=== PATIENT | female | born 1945 | race Caucasian/White ===

== ENCOUNTER 2017-06-28 08:24 | Emergency (ER) | payer MEDICARE, MEDICAID, SELFPAY ==
[2017-06-20 11:14] VITALS: BMI 23.3
[2017-06-28] VITALS (7 sets, daily range): BP systolic 77–107; BP diastolic 40–84; PULSE 81–88; RESP 15–26; TEMP 36.7–36.9; O2SAT 97–100; BMI 23.8
--- NOTE | 2017-06-28 08:33 | ED.RN ---
BRUISING MARKED WITH SKIN PEN
--- NOTE | 2017-06-28 08:33 | ED.RN ---
SITE FIRM AND WARM CLOSEST TO THE RIGHT GROIN AROUND ATTENDS
--- NOTE | 2017-06-28 08:39 | ED.RN ---
PULSES MARKED SKIN MARKER
--- NOTE | 2017-06-28 08:50 | ED.RN ---
PT BP DROPPING. SAND BAG PLACED ON RIGHT GROIN
--- NOTE | 2017-06-28 08:51 | ED.VISSUMM ---
- ER Visit Summary Date of Service: 06/28/17 Chief Complaint: Right groin pain History of Present Illness: The patient is a 72 F presenting for evaluation secondary to right groin pain. Patient had a cardiac catheterization performed on 1113. Patient was doing well post procedure. Patient was sitting at the breakfast table this morning and felt a sudden severe pop in her right groin where she had her catheterization and started to develop swelling and pain. Patient states that she now is feeling somewhat lightheaded. Paramedics noted that the patient was hypotensive and the patient was brought immediately to the emergency department. Patient is on Plavix but no other blood thinners at this time. Physical Examination: Vital signs notable for hypotension. Well-nourished female no acute distress. Moist mucous membranes. Heart regular rate and rhythm. Lungs clear. Abdomen soft nontender. Lower extremity exam shows a significant amount of ecchymosis of the left thigh extending down below the knee. There is some swelling noted up in the groin at the patient's access site. Compartments still remain soft however. Patient does have +1 bilateral DP and PT pulses that are both palpable and dopplerable. Test Results: Tests are pending Emergency Department Course and Treatment: Patient presented secondary to pain and swelling and a likely femoral artery hemorrhage in her right thigh. She was hypotensive. She was typed and crossmatched for 2 units. She was given IV saline hydration. Immediately upon arrival I did contact Dr. John, as he is call center professional today and he performs vascular procedures, who recommended the patient be transferred to a higher level of care. Given how critical the patient is at this moment, I feel that she needs immediate vascular surgery evaluation and intervention. I discussed this with Darin meade, the patient will be transferred emergently for vascular surgery consultation. Patient's continued to be hypotensive and was ordered trauma blood in the emergency department. Sandbag was placed on the patient's right groin. I did consider the possibility of air transport in this patient, but I believe that she actually will receive quicker transport by ground as there was a ground unit close to the hospital. I informed the paramedics to perform manual pressure over the area with the patient was in transit Disposition: Emergent transfer Impression: 1. Right femoral artery hemorrhage 2. Hypotension Critical care time 35 minutes This note was generated with [employer] dictation software. It may contain incorrect words, spelling, and punctuation that were not noted in review of the chart prior to signing ED Disposition - Plan for ED Patient: Disposition: [facility] Chief Complaint: Hypotension Referrals: Care Physician,No Primary [Primary Care Provider] -
--- NOTE | 2017-06-28 08:52 | ED.RN ---
2ND LITER NS STARTED
[2017-06-28 08:53] LABS: Absolute Lymphocyte Count 1.87 X10^3/ul (0.83-4.51); Absolute Neutrophil Count 8.5 X10^3/uL (2.0-7.7); Basophil# 0.06 X10^3/uL; Basophil% 0.5 % (0-1); Eosinophil# 0.21 X10^3/uL; Eosinophils% 1.7 % (0-5); Hematocrit 27.7 % (37-47); Hemoglobin 8.8 g/dl (12.0-15.0); Lymphocyte # 1.87 X10^3/ul (4.0); Lymphocyte % 15.6 % (19-41); Mean Corp Hgb Conc 31.8 g/gl (32-36); Mean Corpuscular Hgb 30.9 pg (27.0-32.0); Mean Corpuscular Volume 97.2 fL (81-99); Mean Platelet Vol. 8.5 fl (6.2-12.0); Monocyte# 1.22 X10^3/uL; Monocyte% 10.1 % (0-10); Neutrophil # 8.49 X10^3/uL (2.7-7.7); Neutrophil % 70.7 % (47-70); POSITIVE COUNT NO; POSITIVE DIFFERENTIAL NO; POSITIVE MORPHOLOGY NO; Platelet Count 320 K/mm3 (150-450); RBC Distribution Width SD 58.4 fl (35.1-43.9); Red Blood Count 2.85 M/mm3 (4.2-5.4)
[2017-06-28 08:54] LABS: International Normalized Ratio 1.1; Prothrombin Time (Protime)PT. 13.3 SECONDS (11.7-14.9)
--- NOTE | 2017-06-28 08:54 | ED.DCSUM_ITS ---
- ER Visit Summary Date of Service: 06/28/17 Chief Complaint: Right groin pain History of Present Illness: The patient is a 72 F presenting for evaluation secondary to right groin pain. Patient had a cardiac catheterization performed on 1113. Patient was doing well post procedure. Patient was sitting at the breakfast table this morning and felt a sudden severe pop in her right groin where she had her catheterization and started to develop swelling and pain. Patient states that she now is feeling somewhat lightheaded. Paramedics noted that the patient was hypotensive and the patient was brought immediately to the emergency department. Patient is on Plavix but no other blood thinners at this time. Physical Examination: Vital signs notable for hypotension. Well-nourished female no acute distress. Moist mucous membranes. Heart regular rate and rhythm. Lungs clear. Abdomen soft nontender. Lower extremity exam shows a significant amount of ecchymosis of the left thigh extending down below the knee. There is some swelling noted up in the groin at the patient's access site. Compartments still remain soft however. Patient does have +1 bilateral DP and PT pulses that are both palpable and dopplerable. Test Results: Tests are pending Emergency Department Course and Treatment: Patient presented secondary to pain and swelling and a likely femoral artery hemorrhage in her right thigh. She was hypotensive. She was typed and crossmatched for 2 units. She was given IV saline hydration. Immediately upon arrival I did contact Dr. John, as he is construction project assistant today and he performs vascular procedures, who recommended the patient be transferred to a higher level of care. Given how critical the patient is at this moment, I feel that she needs immediate vascular surgery evaluation and intervention. I discussed this with Darin meade, the patient will be transferred emergently for vascular surgery consultation. Patient's continued to be hypotensive and was ordered trauma blood in the emergency department. Sandbag was placed on the patient's right groin. I did consider the possibility of air transport in this patient, but I believe that she actually will receive quicker transport by ground as there was a ground unit close to the hospital. I informed the paramedics to perform manual pressure over the area with the patient was in transit Disposition: Emergent transfer Impression: 1. Right femoral artery hemorrhage 2. Hypotension Critical care time 35 minutes This note was generated with [employer] dictation software. It may contain incorrect words, spelling, and punctuation that were not noted in review of the chart prior to signing ED Disposition - Plan for ED Patient: Disposition: [facility] Chief Complaint: Hypotension Referrals: Care Physician,No Primary [Primary Care Provider] -
--- NOTE | 2017-06-28 08:54 | ED.RN ---
PLACED ON O2 VIA NC
[2017-06-28 08:55] LABS: Partial Thromboplast Time 29.9 Seconds (24.1-36.2)
[2017-06-28] MEDS: 0.9% Normal Saline 1,000 ML IV.SOLN. 2000 ML IV (08:55)
[2017-06-28 08:58] LABS: Anion Gap 11 (5-15); BUN 14 mg/dL (7-18); BUN/Creat Ratio 20.7 RATIO (10-20); Calcium,Total 7.8 mg/dL (8.5-10.1); Chloride 106 mmol/L (98-107); Creatinine, Serum 0.68 mg/dL (0.55-1.02); EST Glomerular Filtration Rate 91 mL/min (>60); Est Glom Filt Rate - Afr Amer 111 mL/min (>60); Glucose 154 mg/dL (70-110); Potassium 3.8 mmol/L (3.5-5.1); Sodium Level 140 mmol/L (136-145)
--- NOTE | 2017-06-28 09:14 | ED.RN ---
BEDSIDE REPORT GIVEN TO EMS [facility]W FROM [facility]
--- NOTE | 2017-06-28 09:40 | ED.RN ---
blood and iv fluids continued during transport
== END 2017-06-28 09:15 | disposition short-term general hospital (02) ==
PROVIDERS: Emergency Provider Emergency Medicine
DX: R58 Hemorrhage, not elsewhere classified (principal); I95.9 Hypotension, unspecified; I25.10 Atherosclerotic heart disease of native coronary artery without angina pectoris; E11.9 Type 2 diabetes mellitus without complications; I10 Essential (primary) hypertension; R10.31 Right lower quadrant pain; Z79.82 Long term (current) use of aspirin; Z79.84 Long term (current) use of oral hypoglycemic drugs; Z79.02 Long term (current) use of antithrombotics/antiplatelets; Z79.52 Long term (current) use of systemic steroids; Z79.899 Other long term (current) drug therapy
CPT/HCPCS: 36415; 36430; 80048; 85025; 85610; 85730; 86644; 86850; 86900; 86920; 86922; 99285; J7030; P9016

== ENCOUNTER → 2017-10-05 16:50 | Outpatient (CLI) | payer MEDICARE, SELFPAY ==
[2017-06-20 11:14] VITALS: BMI 23.3
[2017-10-05 18:49] LABS: HIV - WCH Non-Reactive (Nonreactive)
[2017-10-07 13:14] LABS: HEPATITIS B SURFACE AG Negative (Negative); Hep B Surface Antibodies Non Reactive (.); Hep C Antibodies <0.1 s/co ratio (0.0-0.9)
== END ==
PROVIDERS: Family Provider Family Medicine; PCP Family Medicine; Visit Provider Family Medicine
DX: Z77.21 Contact with and (suspected) exposure to potentially hazardous body fluids (principal)
CPT/HCPCS: 86703; 86706; 86803; 87340

== ENCOUNTER 2017-10-13 06:57 | Emergency (ER) | payer MEDICARE, SELFPAY ==
[2017-06-20 11:14] VITALS: BMI 23.3
[2017-10-13 06:58] VITALS: BP 112/55; PULSE 103; RESP 18; TEMP 36.7; O2SAT 99; BMI 23.5
--- NOTE | 2017-10-13 07:11 | CT_ITS ---
STUDY: CT ABDOMEN AND PELVIS WITH CONTRAST REASON FOR EXAM: Female, 72 years old. 3 day history of abdominal pain with nausea. Elevated white cell count and decreased hemoglobin. RADIATION DOSAGE (If Supplied By Facility): CTDIvol = ( 14.31 ) mGy, DLP = ( 688.26 ) mGycm TECHNIQUE: Transaxial images were obtained from the dome of the diaphragm to the symphysis pubis with oral contrast. 100 ml of Isovue 300 contrast was administered. Sagittal and coronal images were reconstructed. Individualized dose optimization techniques were used for this CT. COMPARISON: None. FINDINGS: Increased linear markings at the lung bases with subpleural blebs at the right lung base suggestive of interstitial scarring. Coronary artery calcification. Normal liver. There is evidence of colonic interposition between the liver and the right hemidiaphragm. Normal gallbladder and extrahepatic biliary system. Normal spleen. Normal pancreas. Normal bilateral adrenal glands. There is a 2 cm cyst in the upper lateral portion of the right kidney. A 1.3 cm cyst is seen adjacent to this cyst posteriorly. A 1.5 cm cyst is also seen in the lower midportion of the right kidney. Several cysts are seen in the left kidney. The largest measures 4.4 cm x 4.5 cm. This is in the anterior superior midportion of the left kidney. Normal visualized stomach. Normal small intestine. Normal colon. The patient is status post appendectomy. There is diffuse atherosclerotic calcification of the abdominal aorta and its major visceral branches, without a demonstrated aneurysm. Normal inferior vena cava. Normal retroperitoneum. Normal urinary bladder. Calcified fibroid uterus. I suspect endometrial thickening. Follicles are seen in the left ovary. Correlation with a pelvic ultrasound is recommended. Normal abdominal wall. There is complete collapse of the L1 vertebrae. Loss of height of the T11 vertebrae as well as superior endplate of the L3 vertebrae. Disc space narrowing at the L5-S1 level. CT/Abdomen/Pelvis WITH Contrast IMPRESSION: Bilateral renal cysts. This is more prominent on the left side. Fibroid uterus with endometrial thickening. Follicles are seen in the left ovary. Correlation with pelvic ultrasound is recommended. Collapse of the L1 vertebrae. Electronically Signed: Jose Morrison MD at 9:17 EST Tel [phone], Service support ,
[2017-10-13] MEDS: 0.9% Normal Saline 1,000 ML 125 ML IV (07:14)
[2017-10-13] MEDS: Ondansetron 4 MG/2 ML Vial IV (07:17)
[2017-10-13 07:59] LABS: Mucous, Urine 0 SEEN /hpf (<or=2+); Squamous Epithelial Cells - UA 0 SEEN /hpf (5-10)
--- NOTE | 2017-10-13 07:59 | ED.VISSUMM ---
- ER Visit Summary Date of Service: 10/13/17 Chief Complaint: Abdominal pain History of Present Illness: The patient is a 72 F who notes 3 days of vague centralized abdominal pain. She notes associated nausea. Yesterday the patient was able to go out and he at [facility]. She has had no vomiting or diarrhea. No fevers. She notes generalized fatigue. She states her mouth feels very dry. She has a history of UTI and sepsis. She denies any urinary symptoms. no Rashes. Patient has a known right upper lobe mass that she has not had biopsied due to her choice. In June 2017 she was admitted to the ICU with septic shock secondary to enterococcus cystitis. She had an STEMI and received drug-eluting stents to the left circumflex and RCA. Physical Examination: Afebrile slightly tachycardic at 103. Heart rate on examination is 94 Gen: Well-nourished well-developed Head: Normocephalic atraumatic Eyes: Perrl EOMI ENT: TMs clear no rhinorrhea moist mucous membranes Neck: Supple no lymphadenopathy no JVD nontender CVS: Regular rate rhythm no murmurs normal S1-S2 Respiratory: No distress clear to auscultation bilaterally chest nontender Abdomen: Soft obese and mildly tender without guarding or rebound nondistended normal bowel sounds no masses Back: Nontender Extremity: Nontender no edema Skin: Normal color no rash Neuro: alert orientated ?3 CN II-XII intact normal strength sensation reflexes gait cerebellar Psych: Normal affect normal mood Test Results: White count 13.5. Hemoglobin is 8.8. Glucose 159. Liver enzymes normal. Lactic acid elevated at 3.9. Urinalysis showed 3+ bacteria 0-5 whites 0-5 reds positive nitrate positive leukocyte esterase. EKG sinus at a rate of 99. Chest x-ray shows the right upper lobe mass. CT abdomen pelvis showed no acute findings. Emergency Department Course and Treatment: Blood and urine cultures were obtained. Patient received IV fluids. She also received a dose of Zofran and Zosyn. Patient meets inpatient criteria for severe sepsis secondary to UTI. However the patient states that she does not want to stay in the hospital. She states that she does not like staying inpatient. She understands that she has a high risk of and if she does not will most likely return much worse than she is now. Patient appears to have the capacity to make this decision although I feel strongly it is a poor 1. I will place her on amoxicillin per her prior urine culture. Impression: 1. UTI. 2. Severe sepsis 3. Left AMA This note was generated with [employer] dictation software. It may contain incorrect words, spelling, and punctuation that were not noted in review of the chart prior to signing ED Disposition - Plan for ED Patient: Disposition: Home or Assisted Living Chief Complaint: Abd Pain Instructions: Sepsis Prescriptions: Ondansetron [Zofran Odt] 4 mg PO Q8H PRN PRN #10 tab PRN Reason: Nausea Amoxicillin 500 mg PO TID #30 tab Referrals: Julius Capone [Primary Care Provider] - As soon as possible Additional Instructions: You may return at any time for repeat examination
[2017-10-13 08:00] LABS: Color, Urine Yellow (Yellow); Glucose, Dipstick Normal (Normal); Ketone-Dipstick Negative (Negative); Leukocyte Esterase-Dipstick 25 /ul (Negative); Nitrite-Dipstick Positive (Negative); Occult Blood-Urine 25 /ul (Negative); Protein-Dipstick 100 mg/dl (Negative); Specific Gravity, Urine 1.015 (1.002-1.030); Urine Bilirubin Dipstick Negative (Negative); Urine Clarity Cloudy (Clear); Urine Urobilinogen Normal (Normal)
[2017-10-13 08:10] LABS: Absolute Neutrophil Count 11.3 X10^3/uL (2.0-7.7); Basophil# 0.03 X10^3/uL; Basophil% 0.2 % (0-1); Eosinophil# 0.18 X10^3/uL; Eosinophils% 1.3 % (0-5); Hematocrit 30.9 % (37-47); Hemoglobin 8.8 g/dl (12.0-15.0); Lymphocyte % 7.4 % (19-41); Mean Corp Hgb Conc 28.5 g/gl (32-36); Mean Corpuscular Volume 80.7 fL (81-99); Monocyte# 0.99 X10^3/uL; Monocyte% 7.3 % (0-10); Neutrophil # 11.25 X10^3/uL (2.7-7.7); Neutrophil % 83.3 % (47-70); Platelet Count 304 K/mm3 (150-450); RBC Distribution Width CV 16.7 % (11.6-14.6); Red Blood Count 3.83 M/mm3 (4.2-5.4); White Blood Count 13.5 K/mm3 (4.4-11.0)
[2017-10-13 08:10] LABS: Bacteria 3+ /hpf (None Seen); Red Blood Cells-Urine 0-5 SEEN /hpf (0-5); White Blood Cells 0-5 SEEN /hpf (0-5)
[2017-10-13 08:11] LABS: POSITIVE COUNT NO; POSITIVE DIFFERENTIAL NO; POSITIVE MORPHOLOGY NO
[2017-10-13 08:16] LABS: ALB/GLOB Ratio 0.9 RATIO (0.9-2.4); AST(SGOT) 21 U/L (15-37); Alanine Aminotransfer ALT/SGPT 25 U/L (13-56); Alkaline Phosphatase 72 U/L (45-117); Anion Gap 11 (5-15); BUN 14 mg/dL (7-18); BUN/Creat Ratio 19.9 RATIO (10-20); Calcium,Total 8.2 mg/dL (8.5-10.1); Chloride 103 mmol/L (98-107); EST Glomerular Filtration Rate 87 mL/min (>60); Est Glom Filt Rate - Afr Amer 105 mL/min (>60); Globulin 3.5 g/dL (2.2-4.2); Glucose 159 mg/dL (74-106); Lipase 308 U/L (73-393); Potassium 4.3 mmol/L (3.5-5.1); Protein, Total 6.5 g/dL (6.4-8.2); Sodium Level 136 mmol/L (136-145)
[2017-10-13 08:29] LABS: Lactic Acid 3.9 mmol/L (0.4-2.0)
--- NOTE | 2017-10-13 08:33 | EKG12_ITS ---
Test Reason : ABDOMINAL PAIN Blood Pressure : / mmHG Vent. Rate : 099 BPM Atrial Rate : 099 BPM P-R Int : 160 ms QRS Dur : 088 ms QT Int : 400 ms P-R-T Axes : 054 019 -12 degrees QTc Int : 513 ms Normal sinus rhythm ST & T wave abnormality, consider inferior ischemia Prolonged QT Abnormal ECG Confirmed by FITZ ROMAN, WHITNEY ([id number]), editor farm journal JOSE CONNORS ([id number]) on 10/17/2017 2:31:20 PM Referred By: MAGED Confirmed By:WHITNEY BYRNES MD
--- NOTE | 2017-10-13 08:33 | RAD_ITS ---
STUDY: X-RAY CHEST REASON FOR EXAM: Female, 72 years old. 3 day history of abdominal pain and nausea. TECHNIQUE: AP and lateral views of the chest. COMPARISON: Comparison is made with prior study dated June 18, 2017. FINDINGS: There is a 2.5 cm x 2.1 cm nodule in the right upper lobe. This has increased in size as compared to prior study. Increased markings at the lung bases slightly worse on the right side. This most likely represents atelectasis and/or scarring. I suspect an element of mild vascular congestion. Normal size heart. Normal mediastinum and vinnie. Normal visualized pulmonary arteries. There is atherosclerotic tortuosity of the aortic arch and descending thoracic aorta. There is demineralization of the osseous structures. Increased kyphosis. Loss of height of mid dorsal vertebrae. Normal visualized ribs, clavicles, and shoulders. There is no demonstrated abnormality of the visualized soft tissue structures of the upper abdomen. RAD/Chest PA and Lateral IMPRESSION: Right upper lobe nodule. This has increased in size as compared to prior study. Increased markings at the lung bases worse on the right side suggestive of bibasilar scarring and/or atelectasis. I also suspect mild degree of vascular congestion. Electronically Signed: Jose Morrison MD at 9:20 EST Tel [phone], Service support ,
[2017-10-13 09:12] VITALS: BP 115/70; PULSE 95; RESP 14; O2SAT 99
[2017-10-13] MEDS: 0.9% Normal Saline 1,000 ML 999 ML IV (09:16)
[2017-10-13 09:35] LABS: International Normalized Ratio 1.1; Partial Thromboplast Time 28.5 Seconds (24.1-36.2); Prothrombin Time (Protime)PT. 13.7 SECONDS (11.7-14.9)
[2017-10-13 11:11] VITALS: BP 108/70; PULSE 99; RESP 16; O2SAT 98
[2017-10-13 11:59] LABS: Reflex Lactate? Y
--- NOTE | 2017-10-14 09:14 | CM.ED ---
Call placed to patient for follow-up and to encourage her to come back to hospital. Patient's answers phone and states that they are on their way to the ED at this time. He states, Leaving didn't work out. Staff and provider made aware of patient returning (3--18).
== END 2017-10-13 10:45 | disposition left against medical advice (07) ==
PROVIDERS: Emergency Provider Emergency Medicine; Family Provider Family Medicine; PCP Family Medicine
DX: A41.9 Sepsis, unspecified organism (principal); R65.20 Severe sepsis without septic shock; N39.0 Urinary tract infection, site not specified; E11.9 Type 2 diabetes mellitus without complications; I48.91 Unspecified atrial fibrillation; K21.9 Gastro-esophageal reflux disease without esophagitis; R91.8 Other nonspecific abnormal finding of lung field; Z72.0 Tobacco use; Z79.84 Long term (current) use of oral hypoglycemic drugs; Z79.02 Long term (current) use of antithrombotics/antiplatelets; Z79.82 Long term (current) use of aspirin; Z79.52 Long term (current) use of systemic steroids; Z79.899 Other long term (current) drug therapy; I25.2 Old myocardial infarction; Z87.440 Personal history of urinary (tract) infections; Z95.5 Presence of coronary angioplasty implant and graft
CPT/HCPCS: 71046; 74177; 80053; 81001; 83605; 83690; 84484; 85025; 85610; 85730; 87040; 87086; 87088; 87186; 93005; 96361; 96365; 96375; 99284; J7030; Q9967; A4216; J2405

== ENCOUNTER 2017-10-14 09:16 | Inpatient (IN) | payer MEDICARE, SELFPAY ==
[2017-06-20 11:14] VITALS: BMI 23.3
[2017-10-14] VITALS (20 sets, daily range): BP systolic 92–150; BP diastolic 51–87; PULSE 91–119; RESP 12–42; TEMP 36.4–36.9; O2SAT 95–100; BMI 24.0; BMI 24.5
--- NOTE | 2017-10-14 09:20 | RAD_ITS ---
STUDY: X-RAY CHEST REASON FOR EXAM: Female, 72 years old. Cough and shortness of breath. TECHNIQUE: Single AP portable view of the chest. COMPARISON: Comparison is made with prior examination dated October 13, 2017. FINDINGS: Stable right upper lobe nodular density. Increased linear markings in both lungs suggestive of scarring. There has been essentially no change. There is no demonstrated pleural abnormality. Normal size heart. Normal mediastinum and vinnie. Normal visualized pulmonary arteries. There is atherosclerotic calcification of the aortic arch with tortuosity. There are diffuse degenerative changes of the visualized thoracic spine. Normal visualized ribs, clavicles, and shoulders. Atherosclerotic calcification of the splenic artery. RAD/Chest 1 View (Portable) IMPRESSION: Stable examination. No acute abnormality is seen. Electronically Signed: Jose Morrison MD at 10:05 EST Tel [phone], Service support ,
--- NOTE | 2017-10-14 09:20 | EKG12_ITS ---
Test Reason : SOB Blood Pressure : / mmHG Vent. Rate : 101 BPM Atrial Rate : 101 BPM P-R Int : 140 ms QRS Dur : 076 ms QT Int : 352 ms P-R-T Axes : 045 031 -23 degrees QTc Int : [address] & T wave abnormality, consider inferior ischemia Abnormal ECG Confirmed by FITZ ROMAN, WHITNEY ([id number]), editor in chief newspaper JOSE CONNORS ([id number]) on 10/17/2017 2:47:37 PM Referred By: RITA Confirmed By:WHITNEY BYRNES MD
[2017-10-14] MEDS: Albuterol 2.5 MG/3 ML VIAL.NEB. INHALATION ×4 (09:43→18:30)
[2017-10-14] MEDS: Ipratropium/Albuterol Sulfate 3 ML AMPUL.NEB INHALATION ×2 (09:43→18:25)
--- NOTE | 2017-10-14 09:49 | ED.DCSUM_ITS ---
- ER Visit Summary Date of Service: 10/14/17 Chief Complaint: Not feeling well History of Present Illness: The patient is a 72 F presenting stating that she does not feel well. This started 4 days ago. She was seen in the emergency department yesterday. She was diagnosed with severe sepsis secondary to UTI. At that time she was unwilling to stay in the hospital and left AGAINST MEDICAL ADVICE. She was sent home with amoxicillin and Zofran. She states she continues to feel terrible and is now willing to stay in the hospital. She had a lactic acid of 3.8 yesterday. She had a CT of her abdomen pelvis which showed bilateral renal cyst, fibroid uterus, follicles left ovary. She complains of dyspnea, cough, abdominal pain, nausea without vomiting. She denies diarrhea. She has mild dysuria. She complains of right low back pain. Physical Examination: Vitals are stable. Patient is afebrile. Alert no acute distress. HEENT exam is unremarkable. Dry mucous membranes Neck is supple. Lungs are diminished bilaterally. Heart is regular and tachycardic. Abdomen is soft nontender nondistended. Back: Diffuse tenderness right greater than left Extremities are unremarkable. Skin is warm and dry. No focal neurologic deficit. Remainder of exam is unremarkable. Emergency Department Course and Treatment: Patient is given IV fluids, Zofran, morphine. She was given albuterol and atrovent aerosols. EKG is sinus tachycardia rate of 101 with artifact but no acute abnormality. Blood and urine cultures were sent yesterday. Chest x-ray shows no acute process. CBC shows a white count of 13.3, hemoglobin 8.5. INR is 1.0. Chemistries show sodium 131, glucose 156, creatinine 0.49. Lactic acid is 1.2. On repeat evaluation, patient's pulse ox was 85% on room air. She was put on 2 L nasal cannula oxygen with improvement to the low 90s. Urinalysis shows positive nitrites and leukocyte esterase. She was given Rocephin IV. She continues to be tachycardic in the low 100s and tachypneic. Family does not feel comfortable taking her home. She states she does not feel well enough to go home. Although her blood work looks improved from yesterday, she continues to be tachycardic, tachypneic and hypoxic in the ED. Will discuss with the hospitalist for admission. Disposition: Admission Impression: Sepsis secondary to UTI This note was generated with [employer] dictation software. It may contain incorrect words, spelling, and punctuation that were not noted in review of the chart prior to signing ED Disposition - Plan for ED Patient: Chief Complaint: Back Referrals: Julius Capone [Primary Care Provider] -
[2017-10-14] MEDS: 0.9% Normal Saline 1,000 ML 999 ML IV ×2 (09:56→11:58)
[2017-10-14] MEDS: Ondansetron 4 MG/2 ML Vial IV (09:56)
[2017-10-14 10:05] LABS: Absolute Lymphocyte Count 0.81 X10^3/ul (0.83-4.51); Absolute Neutrophil Count 11.9 X10^3/uL (2.0-7.7); Basophil# 0.03 X10^3/uL; Basophil% 0.2 % (0-1); Eosinophil# 0.02 X10^3/uL; Eosinophils% 0.2 % (0-5); Hematocrit 28.6 % (37-47); Hemoglobin 8.5 g/dl (12.0-15.0); Lymphocyte # 0.81 X10^3/ul (4.0); Lymphocyte % 6.1 % (19-41); Mean Corp Hgb Conc 29.7 g/gl (32-36); Mean Corpuscular Hgb 23.1 pg (27.0-32.0); Mean Corpuscular Volume 77.7 fL (81-99); Mean Platelet Vol. 8.6 fl (6.2-12.0); Monocyte# 0.47 X10^3/uL; Monocyte% 3.5 % (0-10); Neutrophil # 11.88 X10^3/uL (2.7-7.7); Neutrophil % 89.5 % (47-70); POSITIVE COUNT NO; POSITIVE DIFFERENTIAL NO; POSITIVE MORPHOLOGY NO; Platelet Count 239 K/mm3 (150-450); RBC Distribution Width CV 16.8 % (11.6-14.6); RBC Distribution Width SD 47.5 fl (35.1-43.9); Red Blood Count 3.68 M/mm3 (4.2-5.4); White Blood Count 13.3 K/mm3 (4.4-11.0)
[2017-10-14 10:15] LABS: Prothrombin Time (Protime)PT. 13.1 SECONDS (11.7-14.9)
[2017-10-14 10:16] LABS: Partial Thromboplast Time 30.3 Seconds (24.1-36.2)
[2017-10-14 10:24] LABS: ALB/GLOB Ratio 0.9 RATIO (0.9-2.4); AST(SGOT) 36 U/L (15-37); Alanine Aminotransfer ALT/SGPT 34 U/L (13-56); Alkaline Phosphatase 70 U/L (45-117); Anion Gap 9 (5-15); BUN 11 mg/dL (7-18); BUN/Creat Ratio 22.4 RATIO (10-20); Calcium,Total 7.6 mg/dL (8.5-10.1); Chloride 99 mmol/L (98-107); Creatinine, Serum 0.49 mg/dL (0.55-1.02); EST Glomerular Filtration Rate 133 mL/min (>60); Est Glom Filt Rate - Afr Amer 160 mL/min (>60); Globulin 3.5 g/dL (2.2-4.2); Glucose 156 mg/dL (74-106); Potassium 3.9 mmol/L (3.5-5.1); Protein, Total 6.5 g/dL (6.4-8.2); Sodium Level 131 mmol/L (136-145)
[2017-10-14 10:35] LABS: Lactic Acid 1.2 mmol/L (0.4-2.0)
[2017-10-14 10:52] LABS: Mucous, Urine 0 SEEN /hpf (<or=2+)
[2017-10-14 10:53] LABS: Glucose, Dipstick Normal (Normal); Ketone-Dipstick 5 mg/dl (Negative); Leukocyte Esterase-Dipstick 25 /ul (Negative); Nitrite-Dipstick Positive (Negative); Occult Blood-Urine 10 /ul (Negative); Protein-Dipstick 100 mg/dl (Negative); Specific Gravity, Urine 1.015 (1.002-1.030); Urine Bilirubin Dipstick Negative (Negative); Urine Urobilinogen Normal (Normal)
[2017-10-14 10:56] LABS: Color, Urine Yellow (Yellow); Urine Clarity Sl Cloudy (Clear)
[2017-10-14 11:10] LABS: Red Blood Cells-Urine 0 SEEN /hpf (0-5); White Blood Cells 5-10 SEEN /hpf (0-5)
[2017-10-14 11:11] LABS: Bacteria RARE /hpf (None Seen); Squamous Epithelial Cells - UA 0-5 SEEN /hpf (5-10)
--- NOTE | 2017-10-14 14:27 | PCM.HP.STD ---
Problem List (1) Paroxysmal atrial fibrillation Status: Chronic (2) Nonrheumatic tricuspid (valve) insufficiency Status: Chronic (3) Essential (primary) hypertension Status: Chronic (4) UTI (urinary tract infection) Status: Acute (5) MAXI (acute kidney injury) Status: Acute History of Present Illness Date of Admission: 10/14/17 Chief Complaint: generalised weakness and not feeling well This is a 72 F was seen in the emergency room yesterday and diagnosed with sepsis from UTI, but did hospitalization for further management but the patient decided to sign AGAINST MEDICAL ADVICE. she was discharged with p.o. Augmentin , she presented to the emergency room today complaining of not feeling well. Yesterday her lactic acid was 3.[address] of her abdomen and pelvis done yesterday showed bilateral renal cyst, fibroid uterus and follicles of the left ovary. Patient also reports chest congestion shortness of breath or wheezing. Emergency room today, the patient received IV fluids up to 2 L as well as IV Rocephin, and admitted to the hospital for further management. Past Medical History Past Medical History (Chronic Problems): Chronic Problems (Last Updated 07/18/17 @ 08:24 by Gaurav Ortiz NP-C) Paroxysmal atrial fibrillation (Chronic) Nonrheumatic tricuspid (valve) insufficiency (Chronic) Nonrheumatic mitral (valve) insufficiency (Chronic) Essential (primary) hypertension (Chronic) Allergies codeine Allergy (Verified 10/14/17 14:22) I SEE THINGS Home Medications: Ambulatory Orders Medication Instructions Recorded Hydroxychloroquine [Plaquenil] 200 mg PO BIDCM 06/10/17 Latanoprost 0.005% [Xalatan 1 drp EACH EYE QHS 06/10/17 Opthalmic] Metformin HCl 500 mg PO BID 06/10/17 Prednisone 15 mg PO DAILY 06/10/17 timolol maleate 0.25 % eye drops 2 drp EACH EYE BID ml 07/14/17 Ondansetron [Zofran Odt] 4 mg PO Q8H PRN PRN #10 tab 10/13/17 Amoxicillin 500 mg PO TID 10/14/17 Aspirin [Aspirin, Baby] 81 mg PO DAILY@0800 10/14/17 Atorvastatin Calcium [Lipitor] 20 mg PO QHS 10/14/17 Carvedilol [Coreg (Beta Mikal)] 3.125 mg PO BID 10/14/17 Clopidogrel Bisulfate [Plavix] 75 mg PO DAILY 10/14/17 Surgical History: no surgical history Smoking Status: Current every day smoker - *Family History Maternal History Items: No pertinent history Review of Systems Comment: All Systems were reviewed with pertinent positives mentioned in the HPI above. VTE Information - Inpt Only VTE Present on Admission: No VTE Mechan Device Prophylaxis: SCD's VTE Pharm Prophylaxis ordered?: No - Physical Exam General: Alert, Oriented x3 Neck: Supple, No JVD Lungs: Normal air movement, Wheezes Cardiovascular: Regular rate, Normal S1, Normal S2 Abdomen: Bowel Sounds Present, Soft, Non Tender, Non-Distended Neurological: Cranial nerves II-XII grossly intact Vital Signs Temp Pulse Resp BP Pulse Ox 98.4 F 98 25 H 107/56 L 97 10/14/17 12:14 10/14/17 12:14 10/14/17 12:14 10/14/17 12:14 10/14/17 12:14 Weight: 56.926 kg Body Mass Index (BMI) 24.5 Assessment/Plan 1. Acute cystitis; urine culture is growing E. coli continue on IV Rocephin and follow urine cultures. 2. Sepsis; continue IV fluids and antibiotics, she remains hemodynamically stable. 3. Acute Bronchitis ; obtain rapid influenza screen, we will place on bronchodilators and IV steroids. 4. Paroxysmal atrial fibrillation; the patient is on Coreg, but not on anticoagulation. We will place her on ASA. 5. Diabetes type 2; we will hold off on metformin and place him on regular insulin sliding scale. 6. DVT prophylaxis with Lovenox Code Visit Inpatient E&M: 14573 Init Hosp L2
[2017-10-14] MEDS: Ondansetron ODT 4 MG Tablet PO (17:09)
[2017-10-14] MEDS: 0.9% Normal Saline 1,000 ML 100 ML IV (17:26)
[2017-10-14] MEDS: 0.9% NaCl Peripheral Flush Adult/Peds IV (17:26)
[2017-10-14 17:35] LABS: Bedside Glucose 147 mg/dL (70-110)
[2017-10-14] MEDS: Glucerna Shake 120 ML LIQUID PO (18:23)
--- NOTE | 2017-10-14 19:34 | NURSING ---
Dr. Valencia present in pt room. notified drop in SpO2, increase in O2 to 4lnc, increasing wheezing and now also rhoncherous. orders recd. ABGs per RT drawn, Lasix 40mg IV given.
[2017-10-14] MEDS: Furosemide 40 MG/4 ML Vial IV (19:41)
[2017-10-14 19:51] LABS: Base Excess -10 mmol/L (-2 to +2); Bicarbonate 17.5 mmol/L (22-26); Blood Gas Specimen Type ART; O2 Delivery Device Nasal Can; PO2 64 mmHG (75-100); SITE R Radial; SO2 88 % (95-99); Time Given 1945; Total Carbon Dioxide 19 mmol/L; pCO2 40.9 mmHg (35-45); pH 7.24 (7.35-7.45)
--- NOTE | 2017-10-14 19:54 | NURSING ---
Around 191, Cherry RN Notified this nurse that pt is 82% on 2L NC. Cherry RN called for hospitalist STAT. Dr. Valencia called floor, this nurse informed him that pt spo2 82% on 2l and needs to come see pt STAT. Meanwhile, CPS called, came up shortly after called. Pt present while all this was happening. Dr. Valencia up, saw pt, ordered ABG's, BIPAP, lasix, stop Ultram, and get chest xray. All of which were done. Zulma Ashley RN aware of this.
--- NOTE | 2017-10-14 20:05 | RAD_ITS ---
STUDY: X-RAY CHEST REASON FOR EXAM: Female, 72 years old. Acute cystitis and sepsis. TECHNIQUE: Single AP portable view of the chest. COMPARISON: Same day 9:36 AM. FINDINGS: Worsening of density throughout much of the right lung especially in the right lung base where there is evidence for atelectasis or infiltrate. Continued nodular densities of the right apex. In general there appears to be diffuse fibrosis and/or congestion/edema. Possible small bilateral pleural effusions. Heart size within normal limits. Bones and soft tissues unremarkable. IMPRESSION: Worsening airspace disease throughout the right lung. No other changes. Electronically Signed: Kirby Varela MD at 20:26 EST , Service support , RAD/Chest 1 View (Portable)
[2017-10-14] MEDS: Timolol 0.25% 5ML OPTH.BTL 2 DRP EACH EYE (23:43)
[2017-10-14] MEDS: Latanoprost 0.005% 1 Bottle 1 DRP EACH EYE (23:44)
[2017-10-14] MEDS: Carvedilol 3.125 MG TABLET PO (23:48)
[2017-10-14] MEDS: Atorvastatin Calcium 20 MG Tablet PO (23:48)
[2017-10-15] VITALS (37 sets, daily range): BP systolic 83–156; BP diastolic 49–94; PULSE 75–133; RESP 12–31; TEMP 35.9–37; O2SAT 87–100
[2017-10-15] MEDS: Ipratropium/Albuterol Sulfate 3 ML AMPUL.NEB INHALATION ×4 (07:07→22:26)
[2017-10-15 07:15] LABS: Absolute Lymphocyte Count 0.32 X10^3/ul (0.83-4.51); Absolute Neutrophil Count 5.2 X10^3/uL (2.0-7.7); Basophil# 0.01 X10^3/uL; Basophil% 0.2 % (0-1); Hematocrit 26.8 % (37-47); Hemoglobin 7.8 g/dl (12.0-15.0); Lymphocyte # 0.32 X10^3/ul (4.0); Lymphocyte % 5.5 % (19-41); Mean Corp Hgb Conc 29.1 g/gl (32-36); Mean Corpuscular Hgb 22.6 pg (27.0-32.0); Mean Corpuscular Volume 77.7 fL (81-99); Mean Platelet Vol. 8.6 fl (6.2-12.0); Monocyte# 0.29 X10^3/uL; Neutrophil # 5.17 X10^3/uL (2.7-7.7); Neutrophil % 88.8 % (47-70); Platelet Count 231 K/mm3 (150-450); RBC Distribution Width CV 16.6 % (11.6-14.6); RBC Distribution Width SD 47.3 fl (35.1-43.9); Red Blood Count 3.45 M/mm3 (4.2-5.4); White Blood Count 5.8 K/mm3 (4.4-11.0)
[2017-10-15 07:18] LABS: Differential Indicated SCAN CRITERIA MET; POSITIVE COUNT NO; POSITIVE DIFFERENTIAL YES; POSITIVE MORPHOLOGY NO
[2017-10-15 07:26] LABS: Anion Gap 11 (5-15); BUN 12 mg/dL (7-18); Calcium,Total 7.4 mg/dL (8.5-10.1); Chloride 99 mmol/L (98-107); Creatinine, Serum 0.48 mg/dL (0.55-1.02); EST Glomerular Filtration Rate 136 mL/min (>60); Est Glom Filt Rate - Afr Amer 164 mL/min (>60); Glucose 190 mg/dL (74-106); Potassium 3.9 mmol/L (3.5-5.1); Sodium Level 131 mmol/L (136-145)
[2017-10-15 07:30] LABS: Differential Comment SCANNED
[2017-10-15] MEDS: Hydroxychloroquine 200 MG Tablet PO ×2 (08:25→16:28)
[2017-10-15] MEDS: Carvedilol 3.125 MG TABLET PO ×2 (08:25→21:53)
[2017-10-15] MEDS: Aspirin 81 MG TAB.CHEW PO (08:25)
[2017-10-15] MEDS: Clopidogrel Bisulfate 75 MG Tablet PO (08:26)
[2017-10-15] MEDS: Timolol 0.25% 5ML OPTH.BTL 2 DRP EACH EYE ×2 (08:26→21:57)
[2017-10-15] MEDS: Enoxaparin 40 MG/0.4 ML Syringe SC (08:26)
[2017-10-15] MEDS: Ceftriaxone 1 GM/50 ML BAG IV (08:31)
--- NOTE | 2017-10-15 10:28 | RAD_ITS ---
STUDY: X-RAY CHEST REASON FOR EXAM: Female, 72 years old. Dyspnea TECHNIQUE: Single frontal view COMPARISON: October 14, 2017. FINDINGS: The lungs are not fully expanded. Interstitial densities bilaterally. Patchy right pulmonary infiltrates, similar to previous study. Normal size heart. Normal mediastinum and vinnie. Normal visualized pulmonary arteries. Calcified aortic arch and descending thoracic aorta. Normal visualized thoracic spine. Normal visualized ribs, clavicles, and shoulders. There is no demonstrated abnormality of the visualized soft tissue structures of the upper abdomen. RAD/Chest 1 View (Portable) IMPRESSION: Persistent patchy infiltrates of the right lung and interstitial lung disease bilaterally. No significant interval changes. Electronically Signed: Gregor Adames DO at 10:59 EST Tel [phone], Service support ,
[2017-10-15 11:01] LABS: Bedside Glucose 294 mg/dL (70-110)
[2017-10-15 11:29] LABS: Iron 16 ug/dL (50-170); Iron Binding Capacity,Total 335 ug/dL (250-450); PERCENT IRON SATURATION 4.8 % (15.0-55.0)
--- NOTE | 2017-10-15 12:10 | CASEMGMT ---
Social Work Note Face to face with the pt and her spouse. Introduced self and role at [facility]. The pt reports that she lives with her spouse, daughter and son in law in a one-story home with two entry steps and railings. DME consists of a walker, cane, shower chair and toilet riser. Pt denies use of walker or cane at baseline. She has [employer] services and gets aides 7 days/week 2 hrs/day in the morning through [facility]. Her Neuro Intensivist Physician is Kiara Moralez [[phone]]. Pt anticipates returning home at discharge. According to nursing may possibly need O2. Placed call to Kiara Moralez and left updating on pt's admit date and diagnosis. SW to continue to follow and assist with discharge planning. Plan: Home with resumption of aide services through [facility]. Nicolasa Isidro, VOCATIONAL GUIDANCE COUNSELOR, [employer] SOLUTION ARCHITECT
--- NOTE | 2017-10-15 14:34 | PCM.PROGNOTE ---
Subjective: Patient was seen and examined today, yesterday there was some concern that the patient was in CHF and she was given Lasix. I reviewed her chest x-ray from yesterday and the day before, it appears she has chronic interstitial lung disease on the right side in particular. Patient's hemoglobin has been low during this admission, I have ordered iron studies which shows she has iron deficiency anemia. She will be given 2 units of packed red blood cells today as well as Venofir. I will switch her antibiotics over to oral antibiotics starting tomorrow, patient's white blood cell count is normal now - Physical Exam General: Alert, Oriented x3, Cooperative, No apparent distress, Well developed HEENT: Atraumatic, PERRLA, EOMI, Normocephalic Oral: Moist Mucosa Neck: Supple, No JVD, No Nuchal Rigidity, Trachea Midline, Thyroid Normal Size and Texture Lungs: Clear to auscultation, Normal air movement, No rhonchi, No wheeze, Diminished, Rales - Inspiratory rales at the bases bilaterally right more than left Cardiovascular: Regular rate, Regular Rhythm, Normal S1, Normal S2, No murmurs, No Ectopic Activity, PMI Normal, No rub noted, No Gallop Abdomen: Bowel Sounds Present, Soft, Non Tender, Non-Distended, No hernias noted Extremities: No clubbing, No cyanosis, No edema, Capillary Refill Less than 3 Seconds Skin: No rashes, No breakdown Musculoskeletal: No Tenderness to Palpation of Joints or Extremities Neurological: Cranial nerves II-XII grossly intact, Neuro grossly intact, Sensory exam intact to light touch and pain, Coordination normal Psych/Mental Status: Normal Affect, Appropriate, Alert and oriented to time, place, person, mood and affect Vital Signs Temp Pulse Resp BP Pulse Ox 97.8 F 103 H 24 H 124/76 H 97 10/15/17 14:28 10/15/17 14:28 10/15/17 14:28 10/15/17 14:28 10/15/17 14:28 Oxygen Flow Rate (L/min) 2 Oxygen Delivery Method Nasal Cannula Weight: 56.926 kg Body Mass Index (BMI) 24.5 Intake and Output for Last 24 Hours 10/13/17 10/14/17 10/15/17 23:59 23:59 23:59 Intake Total 1359 / 1359 Balance 1359 / 1359 Microbiology Past 72 Hours 10/14/17 18:35 Influenza Types A,B Direct FA ([facility]) - Final Mucosa - Nose Laboratory Tests Past 24 Hrs 10/14/17 10/15/17 10/15/17 19:43 06:35 06:35 WBC 5.8 RBC 3.45 L Hgb 7.8 L Hct 26.8 L MCV 77.7 L MCH 22.6 L MCHC 29.1 L RDW 16.6 H RDW Differential 47.3 H Plt Count 231 MPV 8.6 Immature Gran % (Auto) 0.500 Neut % (Auto) 88.8 H Lymph % (Auto) 5.5 L [place] % (Auto) 5.0 Eos % (Auto) 0.0 Baso % (Auto) 0.2 Absolute Neuts (auto) 5.2 Absolute Lymphs (auto) 0.32 L Total Counted Not Reportable Differential Comment SCANNED Specimen Type ART Sample Site R Radial pH 7.24 L Bicarbonate Actual 17.5 L POC Total CO2 19 Base Excess -10 L O2 Saturation 88 L ABG pCO2 40.9 ABG pO2 64 L Faustino Test NA O2 Delivery Device Nasal Can Liter Flow 4.0 Blood Gas Notified Whom [facility] Blood Gas Notified Time 1944 Sodium 131 L Potassium 3.9 Chloride 99 Carbon Dioxide 21.0 Anion Gap 11 BUN 12 Creatinine 0.48 L Estim Creat Clear Calc 37.60 Est GFR (MDRD) Af Amer 164 Est GFR (MDRD) Non-Af 136 BUN/Creatinine Ratio 25.0 H Glucose 190 H Calcium 7.4 L Iron TIBC Iron Saturation Blood Type Antibody Screen Crossmatch 10/15/17 10/15/17 10:57 10:57 WBC RBC Hgb Hct MCV MCH MCHC RDW RDW Differential Plt Count MPV Immature Gran % (Auto) Neut % (Auto) Lymph % (Auto) [place] % (Auto) Eos % (Auto) Baso % (Auto) Absolute Neuts (auto) Absolute Lymphs (auto) Total Counted Differential Comment Specimen Type Sample Site pH Bicarbonate Actual POC Total CO2 Base Excess O2 Saturation ABG pCO2 ABG pO2 Faustino Test O2 Delivery Device Liter Flow Blood Gas Notified Whom Blood Gas Notified Time Sodium Potassium Chloride Carbon Dioxide Anion Gap BUN Creatinine Estim Creat Clear Calc Est GFR (MDRD) Af Amer Est GFR (MDRD) Non-Af BUN/Creatinine Ratio Glucose Calcium Iron 16 L TIBC 335 Iron Saturation 4.8 L Blood Type O NEGATIVE Antibody Screen NEGATIVE Crossmatch See Detail POC Glucose 10/15/17 10/14/17 10:51 17:28 POC Glucose 294 H 147 H Assessment/Plan #1 sepsis secondary to acute cystitis with E. coli-patient will be changed to oral antibiotics during tomorrow #2 acute cystitis with E. coli-see above #3 iron deficiency anemia-etiology unclear, patient's hemoglobin from last year show anemia, I will Hemoccult the patient's stools and give the patient met of her and packed red blood cells, CBC will be repeated tomorrow #4 chronic obstructive pulmonary disease #5 pulmonary fibrosis #6 paroxysmal atrial fibrillation Code Visit Inpatient E&M: 51794 Subs Hosp L2
[2017-10-15 16:35] LABS: Bedside Glucose 223 mg/dL (70-110)
--- NOTE | 2017-10-15 16:57 | NURSING ---
pt c/o sob vitals signs taken, and sats on 2l nc 95%. bi pap placed on pt. per pt request.
[2017-10-15] MEDS: Furosemide 20 MG/2 ML VIAL IV ×2 (17:14→18:34)
--- NOTE | 2017-10-15 17:15 | NURSING ---
lasix given per dr orders. bipap removed. pt c/o increased sob. ordered abg per dr orders. pt requesting bipap to be placed back on.
[2017-10-15 17:36] LABS: Base Excess -3 mmol/L (-2 to +2); Bicarbonate 21.5 mmol/L (22-26); Blood Gas Specimen Type ART; O2 Delivery Device Nasal Can; PO2 52 mmHG (75-100); SITE R Radial; SO2 87 % (95-99); Time Given 1731; Total Carbon Dioxide 23 mmol/L; pCO2 35.2 mmHg (35-45); pH 7.39 (7.35-7.45)
--- NOTE | 2017-10-15 17:53 | NURSING ---
dr peraza notified of abg results. bipap removed and pt placed on 5l nc. pt encouraged to take slow deep breaths. at bedside.
--- NOTE | 2017-10-15 21:00 | NURSING ---
Dr. Valencia in to see patient. Family in room.
[2017-10-15] MEDS: Atorvastatin Calcium 20 MG Tablet PO (21:53)
[2017-10-15] MEDS: Latanoprost 0.005% 1 Bottle 1 DRP EACH EYE (21:56)
[2017-10-15] MEDS: 0.9% NaCl Peripheral Flush Adult/Peds IV (21:56)
[2017-10-15] MEDS: Glucerna Shake 120 ML LIQUID PO (22:01)
[2017-10-15 22:05] LABS: Bedside Glucose 203 mg/dL (70-110)
--- NOTE | 2017-10-15 22:13 | NURSING ---
per pt and , Okay to give information to [employer] Morales [phone], pt's son.
[2017-10-16] VITALS (21 sets, daily range): BP systolic 118–130; BP diastolic 68–74; PULSE 84–104; RESP 12–29; TEMP 36.2–37; O2SAT 93–99
[2017-10-16] MEDS: Ipratropium/Albuterol Sulfate 3 ML AMPUL.NEB INHALATION ×4 (03:55→19:16)
[2017-10-16] MEDS: 0.9% NaCl Peripheral Flush Adult/Peds IV ×3 (05:27→14:31)
--- NOTE | 2017-10-16 05:55 | RAD_ITS ---
STUDY: X-RAY CHEST REASON FOR EXAM: Female, 72 years old. Dyspnea TECHNIQUE: Single AP portable view of the chest. COMPARISON: October 15, 2017 FINDINGS: The lungs are not fully expanded. Patchy right pulmonary infiltrates, are improved since the previous study. Normal size heart. Normal mediastinum and vinnie. Normal visualized pulmonary arteries. Calcified aortic arch and descending thoracic aorta. Normal visualized thoracic spine. Normal visualized ribs, clavicles, and shoulders. There is no demonstrated abnormality of the visualized soft tissue structures of the upper abdomen. RAD/Chest 1 View (Portable) IMPRESSION: Resolving pneumonia. Electronically Signed: Kevin See MD at 6:27 EDT Tel , Service support ,
[2017-10-16 06:08] LABS: Absolute Lymphocyte Count 0.64 X10^3/ul (0.83-4.51); Absolute Neutrophil Count 6.2 X10^3/uL (2.0-7.7); Basophil# 0.04 X10^3/uL; Basophil% 0.5 % (0-1); Eosinophil# 0.04 X10^3/uL; Eosinophils% 0.5 % (0-5); Hematocrit 31.8 % (37-47); Lymphocyte # 0.64 X10^3/ul (4.0); Lymphocyte % 8.2 % (19-41); Mean Corp Hgb Conc 31.4 g/gl (32-36); Mean Corpuscular Hgb 25.1 pg (27.0-32.0); Mean Corpuscular Volume 79.7 fL (81-99); Mean Platelet Vol. 9.2 fl (6.2-12.0); Monocyte# 0.82 X10^3/uL; Monocyte% 10.6 % (0-10); Neutrophil # 6.17 X10^3/uL (2.7-7.7); Neutrophil % 79.6 % (47-70); Platelet Count 227 K/mm3 (150-450); RBC Distribution Width CV 16.5 % (11.6-14.6); RBC Distribution Width SD 46.2 fl (35.1-43.9); Red Blood Count 3.99 M/mm3 (4.2-5.4); White Blood Count 7.8 K/mm3 (4.4-11.0)
[2017-10-16 06:10] LABS: Anion Gap 10 (5-15); BUN 16 mg/dL (7-18); BUN/Creat Ratio 27.7 RATIO (10-20); Calcium,Total 7.5 mg/dL (8.5-10.1); Chloride 99 mmol/L (98-107); Creatinine, Serum 0.58 mg/dL (0.55-1.02); Differential Indicated SCAN CRITERIA MET; EST Glomerular Filtration Rate 110 mL/min (>60); Est Glom Filt Rate - Afr Amer 133 mL/min (>60); Glucose 200 mg/dL (74-106); POSITIVE COUNT NO; POSITIVE DIFFERENTIAL NO; POSITIVE MORPHOLOGY YES; Potassium 3.5 mmol/L (3.5-5.1); Sodium Level 133 mmol/L (136-145)
[2017-10-16 06:22] LABS: Atypical Lymphocyte RARE %; Differential Comment SCANNED
[2017-10-16 06:50] LABS: Bedside Glucose 267 mg/dL (70-110)
--- NOTE | 2017-10-16 07:32 | PCM.CONS.GEN ---
Reason for Consult Date of Consultation: 10/16/17 Reason for Consultation: Respiratory failure History of Present Illness: The patient is a 72-year-old female, with a history as outlined below, who initially presented to the emergency department on October 14 with generalized malaise. The patient was evaluated in the emergency department on October 13 with complaints of abdominal pain and was subsequently felt to have sepsis secondary to cystitis. He was recommended that the patient be admitted to the hospital. However, the patient refused admission and left AMA. The patient does have a history of rheumatoid arthritis, for which she is prescribed Plaquenil and is on chronic prednisone at 15 mg daily. She also has a self reported right upper lobe lung mass, for which she has previously declined biopsy. The patient has a current smoking history of 1.5 packs per day ?50+ years. Although she states that she has COPD, she has never undergone formal pulmonary function testing. She states that she is currently is prescribed Spiriva on an outpatient basis. She does not currently follow with a lung specialist. At her baseline, the patient reports that she does not utilize supplemental oxygen. The patient was initially admitted to the general medical floor for treatment for her underlying cystitis. However, during the evening of October 15, the patient developed respiratory distress with audible wheezing, requiring initiation of BiPAP therapy. Therefore, the patient was transferred to the progressive care unit. On presentation to the emergency department, the patient was noted to be afebrile and hemodynamically stable. She was, however, tachycardic and tachypneic. Despite this, she was maintaining appropriate oxygen saturations on room air. Initial laboratory evaluation revealed elevated white blood cell count to 13,000. INR was noted to be 1.0. Plain film chest x-ray showed a stable appearing right upper lobe nodular density. Past Medical History Past Medical History (Chronic Problems): Chronic Problems (Last Updated 10/15/17 @ 14:39 by Jairo Garcia DO) Paroxysmal atrial fibrillation (Chronic) Nonrheumatic tricuspid (valve) insufficiency (Chronic) Nonrheumatic mitral (valve) insufficiency (Chronic) Essential (primary) hypertension (Chronic) Allergies codeine Allergy (Verified 10/14/17 14:22) I SEE THINGS Home Medications: Ambulatory Orders Medication Instructions Recorded Hydroxychloroquine [Plaquenil] 200 mg PO BIDCM 06/10/17 Latanoprost 0.005% [Xalatan 1 drp EACH EYE QHS 06/10/17 Opthalmic] Metformin HCl 500 mg PO BID 06/10/17 Prednisone 15 mg PO DAILY 06/10/17 timolol maleate 0.25 % eye drops 2 drp EACH EYE BID ml 07/14/17 Ondansetron [Zofran Odt] 4 mg PO Q8H PRN PRN #10 tab 10/13/17 Amoxicillin 500 mg PO TID 10/14/17 Aspirin [Aspirin, Baby] 81 mg PO DAILY@0800 10/14/17 Atorvastatin Calcium [Lipitor] 20 mg PO QHS 10/14/17 Carvedilol [Coreg (Beta Mikal)] 3.125 mg PO BID 10/14/17 Clopidogrel Bisulfate [Plavix] 75 mg PO DAILY 10/14/17 Surgical History: no surgical history Smoking Status: Current every day smoker - *Family History Maternal History Items: No pertinent history Review of Systems Constitutional: Reports: Malaise, Weakness Eyes: Denies: Blurred vision, Double vision HEENT: Denies: Head Aches, Sinus Congestion, Sinus Drainage Cardiovascular: Denies: Chest Pain, Palpitations Respiratory: Reports: Cough, Shortness of Breath, Wheezing. Denies: Sputum production Gastrointestinal: Denies: Abdominal Pain, Nausea, Vomiting Genitourinary: Denies: Dysuria Musculoskeletal: Denies: Joint Pain, Joint Tenderness Skin: Denies: Rash, Wounds Neurological: Denies: Numbness, Tingling, Focal weakness Psychiatric: Denies: Anxiety, Depression, Homicidal Ideations, Suicidal Ideations Hematologic/ Lymphatic: Reports: Anemia Objective: The patient's most recent lab work, culture data and imaging studies have all been personally reviewed. Prior surface echocardiogram dated June 2017 revealed normal LV size and thickness with an ejection fraction of 50-55%. The patient did have a right ventricular systolic pressure estimated to be 41 mmHg. - Physical Exam General: Alert, Cooperative, No apparent distress, - - Currently resting in bed, eating breakfast. Nasal cannula in place. HEENT: Atraumatic, PERRLA, Normocephalic Oral: Moist Mucosa, No Gingival or Mucosal Lesions/ Ulcerations Neck: Supple, No Nodes, Trachea Midline Lungs: No rhonchi, No rales, Diminished, Wheezes Cardiovascular: Regular rate, Regular Rhythm, Normal S1, Normal S2 Abdomen: Bowel Sounds Present, Soft, Non Tender Extremities: No clubbing, No cyanosis, No edema Skin: No rashes, No breakdown Musculoskeletal: No Tenderness to Palpation of Joints or Extremities, - - Exaggerated kyphosis Lymphatic: No Cervical, Supraclavicular, or Inguinal Adenopathy Neurological: Neuro grossly intact Psych/Mental Status: Flat Affect Vital Signs Temp Pulse Resp BP Pulse Ox 97.2 F L 99 22 H 125/71 H 95 10/16/17 03:50 10/16/17 06:30 10/16/17 06:30 10/16/17 03:50 10/16/17 06:30 Oxygen Flow Rate (L/min) 4 Oxygen Delivery Method Nasal Cannula Weight: 125 lb 8.005 oz Body Mass Index (BMI) 24.5 Intake and Output for Last 24 Hours 10/14/17 10/15/17 10/17/17 23:59 23:59 00:59 Intake Total 2199 / 2199 480 / 480 Balance 2199 / 2199 480 / 480 Microbiology Past 72 Hours 10/14/17 18:35 Influenza Types A,B Direct FA ([facility]) - Final Mucosa - Nose Laboratory Tests Past 24 Hrs 10/15/17 10/15/17 10/15/17 06:35 06:35 10:57 WBC 5.8 RBC 3.45 L Hgb 7.8 L Hct 26.8 L MCV 77.7 L MCH 22.6 L MCHC 29.1 L RDW 16.6 H RDW Differential 47.3 H Plt Count 231 MPV 8.6 Immature Gran % (Auto) 0.500 Neut % (Auto) 88.8 H Lymph % (Auto) 5.5 L [place] % (Auto) 5.0 Eos % (Auto) 0.0 Baso % (Auto) 0.2 Absolute Neuts (auto) 5.2 Absolute Lymphs (auto) 0.32 L Total Counted Not Reportable Differential Comment SCANNED Atypical Lymphocytes Specimen Type Sample Site pH Bicarbonate Actual POC Total CO2 Base Excess O2 Saturation ABG pCO2 ABG pO2 O2 Delivery Device Liter Flow Blood Gas Notified Whom Blood Gas Notified Time Sodium 131 L Potassium 3.9 Chloride 99 Carbon Dioxide 21.0 Anion Gap 11 BUN 12 Creatinine 0.48 L Estim Creat Clear Calc 37.60 Est GFR (MDRD) Af Amer 164 Est GFR (MDRD) Non-Af 136 BUN/Creatinine Ratio 25.0 H Glucose 190 H Calcium 7.4 L Iron TIBC Iron Saturation Blood Type O NEGATIVE Antibody Screen NEGATIVE Crossmatch See Detail 10/15/17 10/15/17 10/16/17 10:57 17:33 05:05 WBC 7.8 RBC 3.99 L Hgb 10.0 L Hct 31.8 L MCV 79.7 L MCH 25.1 L MCHC 31.4 L RDW 16.5 H RDW Differential 46.2 H Plt Count 227 MPV 9.2 Immature Gran % (Auto) 0.600 Neut % (Auto) 79.6 H Lymph % (Auto) 8.2 L [place] % (Auto) 10.6 H Eos % (Auto) 0.5 Baso % (Auto) 0.5 Absolute Neuts (auto) 6.2 Absolute Lymphs (auto) 0.64 L Total Counted Not Reportable Differential Comment SCANNED Atypical Lymphocytes RARE Specimen Type ART Sample Site R Radial pH 7.39 Bicarbonate Actual 21.5 L POC Total CO2 23 Base Excess -3 L O2 Saturation 87 L ABG pCO2 35.2 ABG pO2 52 L O2 Delivery Device Nasal Can Liter Flow 2.0 Blood Gas Notified Whom [facility] Blood Gas Notified Time 1731 Sodium Potassium Chloride Carbon Dioxide Anion Gap BUN Creatinine Estim Creat Clear Calc Est GFR (MDRD) Af Amer Est GFR (MDRD) Non-Af BUN/Creatinine Ratio Glucose Calcium Iron 16 L TIBC 335 Iron Saturation 4.8 L Blood Type Antibody Screen Crossmatch 10/16/17 05:05 WBC RBC Hgb Hct MCV MCH MCHC RDW RDW Differential Plt Count MPV Immature Gran % (Auto) Neut % (Auto) Lymph % (Auto) [place] % (Auto) Eos % (Auto) Baso % (Auto) Absolute Neuts (auto) Absolute Lymphs (auto) Total Counted Differential Comment Atypical Lymphocytes Specimen Type Sample Site pH Bicarbonate Actual POC Total CO2 Base Excess O2 Saturation ABG pCO2 ABG pO2 O2 Delivery Device Liter Flow Blood Gas Notified Whom Blood Gas Notified Time Sodium 133 L Potassium 3.5 Chloride 99 Carbon Dioxide 24.0 Anion Gap 10 BUN 16 Creatinine 0.58 Estim Creat Clear Calc 37.60 Est GFR (MDRD) Af Amer 133 Est GFR (MDRD) Non-Af 110 BUN/Creatinine Ratio 27.7 H Glucose 200 H Calcium 7.5 L Iron TIBC Iron Saturation Blood Type Antibody Screen Crossmatch POC Glucose 10/16/17 10/15/17 10/15/17 06:45 21:51 16:25 POC Glucose 267 H 203 H 223 H 10/15/17 10:51 POC Glucose 294 H Clinical Impression(s) from Imaging Studies Chest X-Ray 10/14/17 09:20 IMPRESSION: Stable examination. No acute abnormality is seen. Electronically Signed: Jose Morrison MD at 10:05 EST Tel [phone], Service support , Chest X-Ray 10/14/17 20:05 Chest X-Ray 10/15/17 10:28 IMPRESSION: Persistent patchy infiltrates of the right lung and interstitial lung disease bilaterally. No significant interval changes. Electronically Signed: Gregor Adames DO at 10:59 EST Tel [phone], Service support , Chest X-Ray 10/16/17 05:55 IMPRESSION: Resolving pneumonia. Electronically Signed: Kevin See MD at 6:27 EDT Tel , Service support , Assessment/Plan RECOMMENDATIONS: 1. Given respiratory compromise and PO2 of 52 noted on ABG, obtain CTA chest. 2. Obtain full respiratory viral panel 3. Continue scheduled aerosol treatments and IV steroids. 4. Wean supplemental oxygen to maintain saturations at or above 90% 5. Continue empiric BiPAP therapy with naps and nightly 6. Smoking cessation is advisable. The patient needs to obtain baseline PFTs on an outpatient basis. IMPRESSIONS: 1. Acute hypoxemic respiratory failure Likely secondary to underlying COPD of unknown severity with exacerbation. In addition, the patient was also given IV fluids and a blood transfusion, which may to have contributed to her respiratory decompensation. Nevertheless, she has responded well to the use of BiPAP therapy. Agree with continued treatment for presumptive COPD exacerbation with IV steroids and aerosol treatments. Would also plan to obtain a CTA chest to evaluate for any embolic phenomenon and for further clarification of the patient's underlying lung abnormalities. She undoubtedly needs to establish care in the pulmonary medicine clinic so that baseline PFTs can be obtained. She denies a history of baseline supplemental oxygen use. Would plan to continue empiric BiPAP therapy with naps and nightly. A walking oximetry study needs to be completed prior to consideration for discharge from the hospital. 2. E. coli cystitis Continue antibiotics as ordered. 3. Diabetes/rheumatoid arthritis/hypertension/tobacco dependence Complicates care, management, recovery and prognosis. Likely okay to continue home medications. Nicotine replacement therapy can be offered while the patient is admitted to the hospital. Recommend physical therapy evaluation. Outpatient pulmonary follow-up is recommended. This note was generated with [employer] dictation software. It may contain incorrect words, spelling, and punctuation that were not noted in checking the note before signing. Code Visit Inpatient E&M: 91104 Init Hosp L3
--- NOTE | 2017-10-16 07:41 | CON.PCM_ITS ---
Reason for Consult Date of Consultation: 10/16/17 Reason for Consultation: Respiratory failure History of Present Illness: The patient is a 72-year-old female, with a history as outlined below, who initially presented to the emergency department on October 14 with generalized malaise. The patient was evaluated in the emergency department on October 13 with complaints of abdominal pain and was subsequently felt to have sepsis secondary to cystitis. He was recommended that the patient be admitted to the hospital. However, the patient refused admission and left AMA. The patient does have a history of rheumatoid arthritis, for which she is prescribed Plaquenil and is on chronic prednisone at 15 mg daily. She also has a self reported right upper lobe lung mass, for which she has previously declined biopsy. The patient has a current smoking history of 1.5 packs per day ?50+ years. Although she states that she has COPD, she has never undergone formal pulmonary function testing. She states that she is currently is prescribed Spiriva on an outpatient basis. She does not currently follow with a lung specialist. At her baseline, the patient reports that she does not utilize supplemental oxygen. The patient was initially admitted to the general medical floor for treatment for her underlying cystitis. However, during the evening of October 15, the patient developed respiratory distress with audible wheezing, requiring initiation of BiPAP therapy. Therefore, the patient was transferred to the progressive care unit. On presentation to the emergency department, the patient was noted to be afebrile and hemodynamically stable. She was, however, tachycardic and tachypneic. Despite this, she was maintaining appropriate oxygen saturations on room air. Initial laboratory evaluation revealed elevated white blood cell count to 13,000. INR was noted to be 1.0. Plain film chest x-ray showed a stable appearing right upper lobe nodular density. Past Medical History Past Medical History (Chronic Problems): Chronic Problems (Last Updated 10/15/17 @ 14:39 by Jairo Garcia DO) Paroxysmal atrial fibrillation (Chronic) Nonrheumatic tricuspid (valve) insufficiency (Chronic) Nonrheumatic mitral (valve) insufficiency (Chronic) Essential (primary) hypertension (Chronic) Allergies codeine Allergy (Verified 10/14/17 14:22) I SEE THINGS Home Medications: Ambulatory Orders Medication Instructions Recorded Hydroxychloroquine [Plaquenil] 200 mg PO BIDCM 06/10/17 Latanoprost 0.005% [Xalatan 1 drp EACH EYE QHS 06/10/17 Opthalmic] Metformin HCl 500 mg PO BID 06/10/17 Prednisone 15 mg PO DAILY 06/10/17 timolol maleate 0.25 % eye drops 2 drp EACH EYE BID ml 07/14/17 Ondansetron [Zofran Odt] 4 mg PO Q8H PRN PRN #10 tab 10/13/17 Amoxicillin 500 mg PO TID 10/14/17 Aspirin [Aspirin, Baby] 81 mg PO DAILY@0800 10/14/17 Atorvastatin Calcium [Lipitor] 20 mg PO QHS 10/14/17 Carvedilol [Coreg (Beta Mikal)] 3.125 mg PO BID 10/14/17 Clopidogrel Bisulfate [Plavix] 75 mg PO DAILY 10/14/17 Surgical History: no surgical history Smoking Status: Current every day smoker - *Family History Maternal History Items: No pertinent history Review of Systems Constitutional: Reports: Malaise, Weakness Eyes: Denies: Blurred vision, Double vision HEENT: Denies: Head Aches, Sinus Congestion, Sinus Drainage Cardiovascular: Denies: Chest Pain, Palpitations Respiratory: Reports: Cough, Shortness of Breath, Wheezing. Denies: Sputum production Gastrointestinal: Denies: Abdominal Pain, Nausea, Vomiting Genitourinary: Denies: Dysuria Musculoskeletal: Denies: Joint Pain, Joint Tenderness Skin: Denies: Rash, Wounds Neurological: Denies: Numbness, Tingling, Focal weakness Psychiatric: Denies: Anxiety, Depression, Homicidal Ideations, Suicidal Ideations Hematologic/ Lymphatic: Reports: Anemia Objective: The patient's most recent lab work, culture data and imaging studies have all been personally reviewed. Prior surface echocardiogram dated June 2017 revealed normal LV size and thickness with an ejection fraction of 50-55%. The patient did have a right ventricular systolic pressure estimated to be 41 mmHg. - Physical Exam General: Alert, Cooperative, No apparent distress, - - Currently resting in bed , eating breakfast. Nasal cannula in place. HEENT: Atraumatic, PERRLA, Normocephalic Oral: Moist Mucosa, No Gingival or Mucosal Lesions/ Ulcerations Neck: Supple, No Nodes, Trachea Midline Lungs: No rhonchi, No rales, Diminished, Wheezes Cardiovascular: Regular rate, Regular Rhythm, Normal S1, Normal S2 Abdomen: Bowel Sounds Present, Soft, Non Tender Extremities: No clubbing, No cyanosis, No edema Skin: No rashes, No breakdown Musculoskeletal: No Tenderness to Palpation of Joints or Extremities, - - Exaggerated kyphosis Lymphatic: No Cervical, Supraclavicular, or Inguinal Adenopathy Neurological: Neuro grossly intact Psych/Mental Status: Flat Affect Vital Signs Temp Pulse Resp BP Pulse Ox 97.2 F L 99 22 H 125/71 H 95 10/16/17 03:50 10/16/17 06:30 10/16/17 06:30 10/16/17 03:50 10/16/17 06:30 Oxygen Flow Rate (L/min) 4 Oxygen Delivery Method Nasal Cannula Weight: 125 lb 8.005 oz Body Mass Index (BMI) 24.5 Intake and Output for Last 24 Hours 10/14/17 10/15/17 10/17/17 23:59 23:59 00:59 Intake Total 2199 / 2199 480 / 480 Balance 2199 / 2199 480 / 480 Microbiology Past 72 Hours 10/14/17 18:35 Influenza Types A,B Direct FA ([facility]) - Final Mucosa - Nose Laboratory Tests Past 24 Hrs 10/15/17 10/15/17 10/15/17 06:35 06:35 10:57 WBC 5.8 RBC 3.45 L Hgb 7.8 L Hct 26.8 L MCV 77.7 L MCH 22.6 L MCHC 29.1 L RDW 16.6 H RDW Differential 47.3 H Plt Count 231 MPV 8.6 Immature Gran % (Auto) 0.500 Neut % (Auto) 88.8 H Lymph % (Auto) 5.5 L [place] % (Auto) 5.0 Eos % (Auto) 0.0 Baso % (Auto) 0.2 Absolute Neuts (auto) 5.2 Absolute Lymphs (auto) 0.32 L Total Counted Not Reportable Differential Comment SCANNED Atypical Lymphocytes Specimen Type Sample Site pH Bicarbonate Actual POC Total CO2 Base Excess O2 Saturation ABG pCO2 ABG pO2 O2 Delivery Device Liter Flow Blood Gas Notified Whom Blood Gas Notified Time Sodium 131 L Potassium 3.9 Chloride 99 Carbon Dioxide 21.0 Anion Gap 11 BUN 12 Creatinine 0.48 L Estim Creat Clear Calc 37.60 Est GFR (MDRD) Af Amer 164 Est GFR (MDRD) Non-Af 136 BUN/Creatinine Ratio 25.0 H Glucose 190 H Calcium 7.4 L Iron TIBC Iron Saturation Blood Type O NEGATIVE Antibody Screen NEGATIVE Crossmatch See Detail 10/15/17 10/15/17 10/16/17 10:57 17:33 05:05 WBC 7.8 RBC 3.99 L Hgb 10.0 L Hct 31.8 L MCV 79.7 L MCH 25.1 L MCHC 31.4 L RDW 16.5 H RDW Differential 46.2 H Plt Count 227 MPV 9.2 Immature Gran % (Auto) 0.600 Neut % (Auto) 79.6 H Lymph % (Auto) 8.2 L [place] % (Auto) 10.6 H Eos % (Auto) 0.5 Baso % (Auto) 0.5 Absolute Neuts (auto) 6.2 Absolute Lymphs (auto) 0.64 L Total Counted Not Reportable Differential Comment SCANNED Atypical Lymphocytes RARE Specimen Type ART Sample Site R Radial pH 7.39 Bicarbonate Actual 21.5 L POC Total CO2 23 Base Excess -3 L O2 Saturation 87 L ABG pCO2 35.2 ABG pO2 52 L O2 Delivery Device Nasal Can Liter Flow 2.0 Blood Gas Notified Whom [facility] Blood Gas Notified Time 1731 Sodium Potassium Chloride Carbon Dioxide Anion Gap BUN Creatinine Estim Creat Clear Calc Est GFR (MDRD) Af Amer Est GFR (MDRD) Non-Af BUN/Creatinine Ratio Glucose Calcium Iron 16 L TIBC 335 Iron Saturation 4.8 L Blood Type Antibody Screen Crossmatch 10/16/17 05:05 WBC RBC Hgb Hct MCV MCH MCHC RDW RDW Differential Plt Count MPV Immature Gran % (Auto) Neut % (Auto) Lymph % (Auto) [place] % (Auto) Eos % (Auto) Baso % (Auto) Absolute Neuts (auto) Absolute Lymphs (auto) Total Counted Differential Comment Atypical Lymphocytes Specimen Type Sample Site pH Bicarbonate Actual POC Total CO2 Base Excess O2 Saturation ABG pCO2 ABG pO2 O2 Delivery Device Liter Flow Blood Gas Notified Whom Blood Gas Notified Time Sodium 133 L Potassium 3.5 Chloride 99 Carbon Dioxide 24.0 Anion Gap 10 BUN 16 Creatinine 0.58 Estim Creat Clear Calc 37.60 Est GFR (MDRD) Af Amer 133 Est GFR (MDRD) Non-Af 110 BUN/Creatinine Ratio 27.7 H Glucose 200 H Calcium 7.5 L Iron TIBC Iron Saturation Blood Type Antibody Screen Crossmatch POC Glucose 10/16/17 10/15/17 10/15/17 06:45 21:51 16:25 POC Glucose 267 H 203 H 223 H 10/15/17 10:51 POC Glucose 294 H Clinical Impression(s) from Imaging Studies Chest X-Ray 10/14/17 09:20 IMPRESSION: Stable examination. No acute abnormality is seen. Electronically Signed: Jose Morrison MD at 10:05 EST Tel [phone], Service support , Chest X-Ray 10/14/17 20:05 Chest X-Ray 10/15/17 10:28 IMPRESSION: Persistent patchy infiltrates of the right lung and interstitial lung disease bilaterally. No significant interval changes. Electronically Signed: Gregor Adames DO at 10:59 EST Tel [phone], Service support , Chest X-Ray 10/16/17 05:55 IMPRESSION: Resolving pneumonia. Electronically Signed: Kevin See MD at 6:27 EDT Tel , Service support , Assessment/Plan RECOMMENDATIONS: 1. Given respiratory compromise and PO2 of 52 noted on ABG, obtain CTA chest. 2. Obtain full respiratory viral panel 3. Continue scheduled aerosol treatments and IV steroids. 4. Wean supplemental oxygen to maintain saturations at or above 90% 5. Continue empiric BiPAP therapy with naps and nightly 6. Smoking cessation is advisable. The patient needs to obtain baseline PFTs on an outpatient basis. IMPRESSIONS: 1. Acute hypoxemic respiratory failure Likely secondary to underlying COPD of unknown severity with exacerbation. In addition, the patient was also given IV fluids and a blood transfusion, which may to have contributed to her respiratory decompensation. Nevertheless, she has responded well to the use of BiPAP therapy. Agree with continued treatment for presumptive COPD exacerbation with IV steroids and aerosol treatments. Would also plan to obtain a CTA chest to evaluate for any embolic phenomenon and for further clarification of the patient's underlying lung abnormalities. She undoubtedly needs to establish care in the pulmonary medicine clinic so that baseline PFTs can be obtained. She denies a history of baseline supplemental oxygen use. Would plan to continue empiric BiPAP therapy with naps and nightly. A walking oximetry study needs to be completed prior to consideration for discharge from the hospital. 2. E. coli cystitis Continue antibiotics as ordered. 3. Diabetes/rheumatoid arthritis/hypertension/tobacco dependence Complicates care, management, recovery and prognosis. Likely okay to continue home medications. Nicotine replacement therapy can be offered while the patient is admitted to the hospital. Recommend physical therapy evaluation. Outpatient pulmonary follow-up is recommended. This note was generated with [employer] dictation software. It may contain incorrect words, spelling, and punctuation that were not noted in checking the note before signing. Code Visit Inpatient E&M: 39113 Init Hosp L3
--- NOTE | 2017-10-16 07:56 | CT_ITS ---
STUDY: CTA CHEST REASON FOR EXAM: Female, 72 years old. Hypoxia RADIATION DOSAGE (If Supplied By Facility): CTDIvol = ( 14.54 ) mGy, DLP = ( 556.09 ) mGycm TECHNIQUE: The examination was performed with the intravenous administration of 75CC ml of Isovue 370 contrast material. Post-processing of the angiographic images was performed, with multiplanar reformation and 3D reconstruction. Individualized dose optimization techniques were used for this CT. COMPARISON: None. FINDINGS: Normal enhancement of the main pulmonary artery and right and left pulmonary arteries. Normal enhancement of the bilateral peripheral pulmonary arteries. There is no demonstrated pulmonary embolism. Calcified thoracic aorta and visualized great vessels. There is no demonstrated aortic dissection. Normal heart and pericardium. Normal mediastinum. Normal hilar regions. Normal visualized trachea and bronchi. The lungs are well expanded. Emphysematous changes are noted. Focal right upper lobe consolidation. Mild pleural effusion with basilar consolidation/atelectasis bilaterally, right more than left. Normal chest wall structures. Degenerative vertebral changes with scoliosis compression of T6, T11, and L1 vertebral bodies. Mild retropulsion of L1 posteriorly is noted into the spinal canal.. Renal cysts are noted. CT/CTA Chest W/WO Contrast IMPRESSION: No demonstrated pulmonary embolism or arterial dissection. Emphysematous changes of the lungs. Focal right upper lobe consolidation. Bilateral pleural effusion with basilar consolidation/atelectasis, right more than left. Compression deformity of T6, T11, and L1. Bilateral renal cysts. Electronically Signed: Gregor Adames DO at 9:20 EDT Tel [phone], Service support ,
[2017-10-16] MEDS: Hydroxychloroquine 200 MG Tablet PO ×2 (09:42→16:57)
[2017-10-16] MEDS: Glucerna Shake 120 ML LIQUID PO ×4 (09:43→21:52)
[2017-10-16] MEDS: Cephalexin 500 MG Capsule PO ×2 (09:43→21:51)
[2017-10-16] MEDS: Carvedilol 3.125 MG TABLET PO ×2 (09:43→21:51)
[2017-10-16] MEDS: Enoxaparin 40 MG/0.4 ML Syringe SC (09:44)
[2017-10-16] MEDS: Timolol 0.25% 5ML OPTH.BTL 2 DRP EACH EYE ×2 (09:44→21:53)
[2017-10-16] MEDS: Clopidogrel Bisulfate 75 MG Tablet PO (09:44)
[2017-10-16] MEDS: Furosemide 20 MG/2 ML VIAL IV ×2 (09:53→16:57)
[2017-10-16 12:05] LABS: Bedside Glucose 316 mg/dL (70-110)
--- NOTE | 2017-10-16 15:29 | PCM.PROGNOTE ---
Subjective: Patient was seen and examined today, early yesterday evening, she was transferred to the PCU due to respiratory failure. Today she is on 4 L nasal cannula, she was treated yesterday with IV corticosteroids, aggressive breathing treatments, and IV Lasix. Pulmonary medicine saw the patient today and feels that her episode could have been caused by an exacerbation of COPD with underlying fluid administration. Patient's hemoglobin today is 10. Due to her iron deficiency anemia, I discussed whether she had ever had a colonoscopy-patient has not-patient says she is not in favor of undergoing any testing such as an EGD or colonoscopy even though she knows she may have iron deficiency anemia from an unknown bleeding source. Her was in the room I talked to her concerning this, I asked her that if she changed her mind to let us know and we would schedule endoscopy either while she was in the hospital or after she stabilizes as an outpatient. For now, I have administered Venofer again today, she will get another dose tomorrow. - Physical Exam General: Alert, Oriented x3, Cooperative, No apparent distress, Well developed, Well nourished HEENT: Atraumatic, PERRLA, EOMI, Normocephalic Oral: Moist Mucosa Neck: Supple, No JVD, No Nuchal Rigidity, Trachea Midline, Thyroid Normal Size and Texture Lungs: Clear to auscultation, No wheeze, Diminished - Diminished breath sounds bilaterally, Rales - Inspiratory rales at the bases bilaterally Cardiovascular: Regular rate, Regular Rhythm, Normal S1, Normal S2, No murmurs, No Ectopic Activity, No rub noted, No Gallop Abdomen: Bowel Sounds Present, Soft, Non Tender, Non-Distended, No hernias noted Extremities: No clubbing, No cyanosis, No edema, Capillary Refill Less than 3 Seconds Skin: No rashes, No breakdown Musculoskeletal: No Tenderness to Palpation of Joints or Extremities Neurological: Cranial nerves II-XII grossly intact, Neuro grossly intact, Sensory exam intact to light touch and pain, Coordination normal Psych/Mental Status: Normal Affect, Appropriate, Alert and oriented to time, place, person, mood and affect Vital Signs Temp Pulse Resp BP Pulse Ox 98.6 F 99 24 H 118/74 98 10/16/17 09:40 10/16/17 11:27 10/16/17 11:27 10/16/17 09:40 10/16/17 11:27 Oxygen Flow Rate (L/min) 2 Oxygen Delivery Method Nasal Cannula Weight: 56.926 kg Body Mass Index (BMI) 24.5 Intake and Output for Last 24 Hours 10/14/17 10/15/17 10/17/17 23:59 23:59 00:59 Intake Total 2198 / 9 711 / 711 Balance 2198 / 2198 711 / 711 Microbiology Past 72 Hours 10/16/17 10:25 Respiratory Panel (PCR) - Final Mucosa - Nasopharyngeal 10/14/17 18:35 Influenza Types A,B Direct FA ([facility]) - Final Mucosa - Nose Laboratory Tests Past 24 Hrs 10/15/17 10/15/17 10/16/17 10:57 17:33 05:05 WBC 7.8 RBC 3.99 L Hgb 10.0 L Hct 31.8 L MCV 79.7 L MCH 25.1 L MCHC 31.4 L RDW 16.5 H RDW Differential 46.2 H Plt Count 227 MPV 9.2 Immature Gran % (Auto) 0.600 Neut % (Auto) 79.6 H Lymph % (Auto) 8.2 L [place] % (Auto) 10.6 H Eos % (Auto) 0.5 Baso % (Auto) 0.5 Absolute Neuts (auto) 6.2 Absolute Lymphs (auto) 0.64 L Total Counted Not Reportable Differential Comment SCANNED Atypical Lymphocytes RARE Specimen Type ART Sample Site R Radial pH 7.39 Bicarbonate Actual 21.5 L POC Total CO2 23 Base Excess -3 L O2 Saturation 87 L ABG pCO2 35.2 ABG pO2 52 L O2 Delivery Device Nasal Can Liter Flow 2.0 Blood Gas Notified Whom [facility] Blood Gas Notified Time 1731 Sodium Potassium Chloride Carbon Dioxide Anion Gap BUN Creatinine Estim Creat Clear Calc Est GFR (MDRD) Af Amer Est GFR (MDRD) Non-Af BUN/Creatinine Ratio Glucose Calcium Blood Type O NEGATIVE Antibody Screen NEGATIVE Crossmatch See Detail 10/16/17 05:05 WBC RBC Hgb Hct MCV MCH MCHC RDW RDW Differential Plt Count MPV Immature Gran % (Auto) Neut % (Auto) Lymph % (Auto) [place] % (Auto) Eos % (Auto) Baso % (Auto) Absolute Neuts (auto) Absolute Lymphs (auto) Total Counted Differential Comment Atypical Lymphocytes Specimen Type Sample Site pH Bicarbonate Actual POC Total CO2 Base Excess O2 Saturation ABG pCO2 ABG pO2 O2 Delivery Device Liter Flow Blood Gas Notified Whom Blood Gas Notified Time Sodium 133 L Potassium 3.5 Chloride 99 Carbon Dioxide 24.0 Anion Gap 10 BUN 16 Creatinine 0.58 Estim Creat Clear Calc 37.60 Est GFR (MDRD) Af Amer 133 Est GFR (MDRD) Non-Af 110 BUN/Creatinine Ratio 27.7 H Glucose 200 H Calcium 7.5 L Blood Type Antibody Screen Crossmatch POC Glucose 10/16/17 10/16/17 10/15/17 11:23 06:45 21:51 POC Glucose 316 H 267 H 203 H 10/15/17 16:25 POC Glucose 223 H Assessment/Plan #1 sepsis secondary to acute cystitis with E. coli-patient is now on oral Keflex day #1, patient had 2 previous days treatment with Rocephin IV #2 acute hypoxic respiratory failure secondary to exacerbation of COPD on an overlay of diastolic congestive heart failure and mild pulmonary hypertension-continue IV Lasix for now, aggressive aerosol treatments, IV Solu-Medrol, pulmonary medicine is participating in her care #3 acute cystitis with E. coli #4 iron deficiency anemia-etiology unclear, patient's hemoglobin from last year shows anemia, I will Hemoccult the patient's stools and give the patient Venofer, again patient does not want to undergo any endoscopy at this time either colonoscopy or EGD, she is aware of this risk of not having these tests #5 chronic obstructive pulmonary disease exacerbation-continue IV Solu-Medrol and aerosol treatments #6 pulmonary fibrosis #7 paroxysmal atrial fibrillation #8 acute diastolic congestive heart failure-patient's EF is 50-55% on echocardiogram 06/21/17, I will not repeat the patient's echocardiogram at this point #9 debility-continue PT and OT #10 coronary artery disease #11 hypertension Code Visit Inpatient E&M: 33872 Subs Hosp L2
[2017-10-16 17:06] LABS: Bedside Glucose 247 mg/dL (70-110)
[2017-10-16] MEDS: Atorvastatin Calcium 20 MG Tablet PO (21:51)
[2017-10-16] MEDS: Latanoprost 0.005% 1 Bottle 1 DRP EACH EYE (21:52)
[2017-10-16 22:06] LABS: Bedside Glucose 268 mg/dL (70-110)
--- NOTE | 2017-10-16 23:30 | NURSING ---
report received from JOSE Rodriguez. This RN assuming care at this time.
[2017-10-17] VITALS (22 sets, daily range): BP systolic 125–146; BP diastolic 64–79; PULSE 77–120; RESP 12–24; TEMP 36.1–37; O2SAT 95–98
--- NOTE | 2017-10-17 | NURSING ---
offered bipap, pt refused at this time
[2017-10-17] MEDS: Ipratropium/Albuterol Sulfate 3 ML AMPUL.NEB INHALATION ×4 (03:40→19:40)
[2017-10-17] MEDS: 0.9% NaCl Peripheral Flush Adult/Peds IV ×2 (05:31→19:31)
[2017-10-17 06:19] LABS: Absolute Neutrophil Count 10.4 X10^3/uL (2.0-7.7); Basophil# 0.03 X10^3/uL; Basophil% 0.2 % (0-1); Hematocrit 33.1 % (37-47); Hemoglobin 9.9 g/dl (12.0-15.0); Lymphocyte % 7.9 % (19-41); Mean Corp Hgb Conc 29.9 g/gl (32-36); Mean Corpuscular Hgb 24.3 pg (27.0-32.0); Mean Corpuscular Volume 81.1 fL (81-99); Mean Platelet Vol. 8.9 fl (6.2-12.0); Monocyte# 1.21 X10^3/uL; Monocyte% 9.5 % (0-10); Neutrophil # 10.38 X10^3/uL (2.7-7.7); Neutrophil % 81.8 % (47-70); Platelet Count 220 K/mm3 (150-450); RBC Distribution Width CV 16.8 % (11.6-14.6); Red Blood Count 4.08 M/mm3 (4.2-5.4); White Blood Count 12.7 K/mm3 (4.4-11.0)
[2017-10-17 06:31] LABS: Differential Indicated SCAN CRITERIA MET; POSITIVE COUNT NO; POSITIVE DIFFERENTIAL NO; POSITIVE MORPHOLOGY YES
[2017-10-17 06:45] LABS: Anion Gap 9 (5-15); BUN 24 mg/dL (7-18); BUN/Creat Ratio 34.7 RATIO (10-20); Calcium,Total 7.6 mg/dL (8.5-10.1); Chloride 101 mmol/L (98-107); Creatinine, Serum 0.69 mg/dL (0.55-1.02); EST Glomerular Filtration Rate 89 mL/min (>60); Est Glom Filt Rate - Afr Amer 108 mL/min (>60); Glucose 244 mg/dL (74-106); Sodium Level 135 mmol/L (136-145)
[2017-10-17 06:51] LABS: Bedside Glucose 255 mg/dL (70-110)
[2017-10-17 06:54] LABS: Atypical Lymphocyte RARE %; Differential Comment SCANNED
[2017-10-17] MEDS: Hydroxychloroquine 200 MG Tablet PO ×2 (08:20→17:03)
--- NOTE | 2017-10-17 09:31 | PN_ITS ---
Subjective: Patient remains afebrile and hemodynamically stable. According to nursing staff , has been refusing BiPAP off and on. She is very anxious this morning and wants to leave. Complains of intermittently productive cough and persistent dyspnea on exertion. Patient shrugging her shoulders when asked if her breathing has improved. Patient remains on IV steroids and Lasix. Remains intermittently tachycardic. Objective: Recent lab work and imaging reviewed. Influenza screening respiratory panel were negative. Urine culture from 10/13/17 showing E. coli. Blood culture 10/13 showing no growth in [address] of the chest negative for PE or dissection, there was emphysematous changes of the lungs and a focal right upper lobe consolidation. Bilateral pleural effusions with basilar consolidation/atelectasis, right greater than left. Also compression deformities of T6, T11, and L1. Bilateral renal cysts. Last known echo 06/22/17 showed estimated EF 50-55%, regional wall motion abnormality, mildly enlarged left atrium, mild MVI and TVI, and RVSP estimated at 41 mmHg consistent with mild pulmonary hypertension. Clinical Impression(s) from Imaging Studies Chest X-Ray 10/16/17 05:55 IMPRESSION: Resolving pneumonia. Electronically Signed: Kevin See MD at 6:27 EDT Tel , Service support , Chest CTA 10/16/17 07:56 IMPRESSION: No demonstrated pulmonary embolism or arterial dissection. Emphysematous changes of the lungs. Focal right upper lobe consolidation. Bilateral pleural effusion with basilar consolidation/atelectasis, right more than left. Compression deformity of T6, T11, and L1. Bilateral renal cysts. Electronically Signed: Gregor Adames DO at 9:20 EDT Tel [phone], Service support , - Physical Exam General: Alert, Oriented x3, Cooperative, - - Flat affect HEENT: Atraumatic, Normocephalic Oral: Moist Mucosa Neck: Supple, No JVD, No Nodes, Trachea Midline Lungs: - - Diminished with bibasilar rales. No dullness to percussion Cardiovascular: Regular rate, Regular Rhythm, Normal S1, Normal S2, No murmurs Abdomen: Bowel Sounds Present, Soft, Non Tender, Non-Distended, Obese Extremities: No clubbing, No cyanosis, No edema Skin: No rashes, - - ecchymotic upper extremities, no hematomas Musculoskeletal: No Tenderness to Palpation of Joints or Extremities, Arthritic Changes, - - kyphotic Lymphatic: No Cervical, Supraclavicular, or Inguinal Adenopathy Neurological: Cranial nerves II-XII grossly intact, Neuro grossly intact, Motor Exam 5/5 strength throughout Psych/Mental Status: Flat Affect, Restless Vital Signs Temp Pulse Resp BP Pulse Ox 98.6 F 102 H 20 H 134/79 H 98 10/17/17 08:01 10/17/17 08:04 10/17/17 08:04 10/17/17 08:01 10/17/17 08:04 Oxygen Flow Rate (L/min) 2 Oxygen Delivery Method Nasal Cannula Weight: 125 lb 8.005 oz Body Mass Index (BMI) 24.5 Intake and Output for Last 24 Hours 10/15/17 10/16/17 10/17/17 22:59 23:59 23:59 Intake Total 240 / 240 Balance 240 / 240 Microbiology Past 72 Hours 10/16/17 10:25 Respiratory Panel (PCR) - Final Mucosa - Nasopharyngeal 10/14/17 18:35 Influenza Types A,B Direct FA ([facility]) - Final Mucosa - Nose Laboratory Tests Past 24 Hrs 10/15/17 10/17/17 10/17/17 10:57 05:50 05:50 WBC 12.7 H RBC 4.08 L Hgb 9.9 L Hct 33.1 L MCV 81.1 MCH 24.3 L MCHC 29.9 L RDW 16.8 H RDW Differential 49.0 H Plt Count 220 MPV 8.9 Immature Gran % (Auto) 0.600 Neut % (Auto) 81.8 H Lymph % (Auto) 7.9 L [place] % (Auto) 9.5 Eos % (Auto) 0.0 Baso % (Auto) 0.2 Absolute Neuts (auto) 10.4 H Absolute Lymphs (auto) 1.00 Total Counted Not Reportable Differential Comment SCANNED Atypical Lymphocytes RARE Sodium 135 L Potassium 4.0 Chloride 101 Carbon Dioxide 25.0 Anion Gap 9 BUN 24 H Creatinine 0.69 Estim Creat Clear Calc 37.60 Est GFR (MDRD) Af Amer 108 Est GFR (MDRD) Non-Af 89 BUN/Creatinine Ratio 34.7 H Glucose 244 H Calcium 7.6 L Crossmatch See Detail POC Glucose 10/17/17 10/16/17 10/16/17 06:46 21:43 16:55 POC Glucose 255 H 268 H 247 H 10/16/17 11:23 POC Glucose 316 H Assessment/Plan RECOMMENDATIONS: 1. Continue scheduled aerosol treatments and IV steroids, likely okay to transition to oral by tomorrow morning. 2. Wean supplemental oxygen to maintain saturations at or above 90% 3. Continue empiric BiPAP therapy with naps and nightly 4. Smoking cessation is advisable. The patient needs to obtain baseline PFTs on an outpatient basis. 5. Walking oximetry prior to consideration for discharge 6. Initiate incentive spirometer, encourage use IMPRESSIONS: 1. Acute hypoxemic respiratory failure Likely secondary to underlying COPD of unknown severity with exacerbation. In addition, the patient was also given IV fluids and a blood transfusion, which may to have contributed to her respiratory decompensation. Nevertheless, she has responded well to the use of BiPAP therapy. Agree with continued treatment for presumptive COPD exacerbation with IV steroids and aerosol treatments. CTA chest obtained to rule out PE, was negative. Patient needs to establish care in the pulmonary medicine clinic so that baseline PFTs can be obtained. She is not overly interested at this time. She denies a history of baseline supplemental oxygen use. Would plan to continue empiric BiPAP therapy with naps and nightly. A walking oximetry study needs to be completed prior to consideration for discharge from the hospital. Patient has some bibasilar rales today, would initiate incentive spirometer. She is relatively sedentary and likely has some atelectasis. 2. E. coli cystitis Continue antibiotics as ordered. 3. Diabetes/rheumatoid arthritis/hypertension/tobacco dependence Complicates care, management, recovery and prognosis. Likely okay to continue home medications. Nicotine replacement therapy can be offered while the patient is admitted to the hospital. Adjust insulin coverage, patient more hyperglycemic likely related to her steroids. Continue physical therapy. Outpatient pulmonary follow-up is recommended. This note was generated with [employer] software. It may contain incorrect words, spelling, and punctuation that were not noted in checking the note before signing.
[2017-10-17] MEDS: Carvedilol 3.125 MG TABLET PO ×2 (10:21→22:21)
[2017-10-17] MEDS: Cephalexin 500 MG Capsule PO ×2 (10:21→22:21)
[2017-10-17] MEDS: Clopidogrel Bisulfate 75 MG Tablet PO (10:21)
[2017-10-17] MEDS: Enoxaparin 40 MG/0.4 ML Syringe SC (10:28)
[2017-10-17] MEDS: Timolol 0.25% 5ML OPTH.BTL 2 DRP EACH EYE ×2 (10:35→22:24)
--- NOTE | 2017-10-17 10:35 | CASEMGMT ---
Per therapy notes, they are recommending SNF placement for pt at this time. This RN CM to speak with pt and family member at bedside regarding recommendation and pt immediately says, No, I am not going anywhere. Pt adamantly refuses SNF placement at this time, so this RN HERBERT offered HHC for therapy and pt refuses HHC at this time also, stating I have aides that come 7 days per week, I don't want/need anything else. Family member just shakes head at bedside. This RN HERBERT advised pt to ask for CM if she changes her mind on anything discussed or if she has any further concerns/needs, voices understanding. SStaten JOSE GODINEZ
[2017-10-17] MEDS: Furosemide 20 MG/2 ML VIAL IV ×2 (10:47→19:31)
[2017-10-17] MEDS: Glucerna Shake 120 ML LIQUID PO ×3 (11:13→22:21)
[2017-10-17 11:26] LABS: Bedside Glucose 368 mg/dL (70-110)
[2017-10-17 17:11] LABS: Bedside Glucose 407 mg/dL (70-110)
--- NOTE | 2017-10-17 17:37 | PCM.PROGNOTE ---
Subjective: Patient is a 72-year-old female with a past medical history of paroxysmal atrial fibrillation (not on anticoagulation), diabetes mellitus type 2, hyperlipidemia, nonrheumatic tricuspid insufficiency, hypertension and nicotine dependence who presented to the emergency department at [facility] on 10/14/2017 complaining of not feeling well. she was on Prednisone and Plaquenil at admission. She had been seen in the emergency room the preceding day and signed out AGAINST MEDICAL ADVICE when workup revealed a urinary tract infection. Lactic acid at that time was 3.8. CT scan of the abdomen and pelvis done on 10/13/2017 showed bilateral renal cysts, a fibroid uterus and follicles of the left ovary. She additionally complained of wheezing and chest congestion. Vital signs at presentation to the emergency room were temperature 98.2, pulse rate 104, blood pressure 150/79, respiratory rate 42 and she was 98% saturated on room air. White blood cell count was elevated at 13.3 with a left shift. Hemoglobin was 8.5 and the MCV was 77.7 with an elevated RDW at 16.8. Platelet count was 239,000. Sodium was low at 131 and the BUN was 11 with a creatinine of 0.49. A random glucose was elevated at 156. Acid was normal at 1.2. Sugars are markedly elevated. Urine culture from 10/13/2017 grew E. coli resistant to ampicillin. She was admitted to the hospital with a diagnosis of acute cystitis and acute bronchitis. IV Rocephin was started. She was started on aerosolized bronchodilators, IV steroids and influenza swab and respiratory panel were ordered and both were negative. She has been transitioned to Keflex and is currently afebrile. She has been afebrile since admission. Heart rate is persistently in the low 100s and the blood pressure shows mild systolic hypertension intermittently. She is currently 95% saturated on a 2 L nasal cannula with a respiratory rate of 22 and tells me that she does not wear oxygen at home. She does continue to smoke. She denies chest pain and denies shortness of breath. She participated minimally with physical therapy on 10/16/2017 and refused physical therapy on 10/17/2017. She requested to be discharged but I told her that she had not walked yet and we would need to see her walk and obtain a pulse ox on room air prior to her being discharged. She insisted on being discharged and I told her that she would have to leave AMA and would not receive prescriptions. He elected to stay in the hospital. A CTA of the chest was done on 10/16 and showed no pulmonary embolus but did show a focal RUL consolidation vs mass and BL Pleural effusions. There were also compression fractures of T6, T11 and L1. - Physical Exam General: Alert, Oriented x3 HEENT: Atraumatic Oral: Moist Mucosa Neck: Supple Lungs: Diminished - throughout, no wheeZing or crackles appreciated, - - She is kyphotic with an increased AP diameter of the chest. She has no conversational dyspnea. She has no accessory muscle use and she does not appear to be in any distress sitting on the bed. Cardiovascular: Regular rate, Regular Rhythm, Normal S1, Normal S2, No Gallop, - - tele shows NSR, SB and occasional PVC's and rare couplet Abdomen: Bowel Sounds Present, Soft, Non Tender, Non-Distended Extremities: No edema, No Calf Tenderness Skin: No rashes Neurological: Cranial nerves II-XII grossly intact, Neuro grossly intact Psych/Mental Status: Agitated - confrontational wants to go home and is mad that I will not DC because she has not walked yet Vital Signs Temp Pulse Resp BP Pulse Ox 98.6 F 110 H 16 146/79 H 95 10/17/17 14:48 10/17/17 15:20 10/17/17 15:20 10/17/17 14:48 10/17/17 14:48 Oxygen Flow Rate (L/min) 2 Oxygen Delivery Method Nasal Cannula Weight: 125 lb 8.005 oz Body Mass Index (BMI) 24.5 Intake and Output for Last 24 Hours 10/15/17 10/16/17 10/17/17 22:59 23:59 23:59 Intake Total 843 / 843 Balance 843 / 843 Microbiology Past 72 Hours 10/16/17 10:25 Respiratory Panel (PCR) - Final Mucosa - Nasopharyngeal 10/14/17 18:35 Influenza Types A,B Direct FA ([facility]) - Final Mucosa - Nose Laboratory Tests Past 24 Hrs 10/15/17 10/17/17 10/17/17 10:57 05:50 05:50 WBC 12.7 H RBC 4.08 L Hgb 9.9 L Hct 33.1 L MCV 81.1 MCH 24.3 L MCHC 29.9 L RDW 16.8 H RDW Differential 49.0 H Plt Count 220 MPV 8.9 Immature Gran % (Auto) 0.600 Neut % (Auto) 81.8 H Lymph % (Auto) 7.9 L [place] % (Auto) 9.5 Eos % (Auto) 0.0 Baso % (Auto) 0.2 Absolute Neuts (auto) 10.4 H Absolute Lymphs (auto) 1.00 Total Counted Not Reportable Differential Comment SCANNED Atypical Lymphocytes RARE Sodium 135 L Potassium 4.0 Chloride 101 Carbon Dioxide 25.0 Anion Gap 9 BUN 24 H Creatinine 0.69 Estim Creat Clear Calc 37.60 Est GFR (MDRD) Af Amer 108 Est GFR (MDRD) Non-Af 89 BUN/Creatinine Ratio 34.7 H Glucose 244 H Calcium 7.6 L Crossmatch See Detail POC Glucose 10/17/17 10/17/17 10/17/17 17:01 11:11 06:46 POC Glucose 407 H 368 H 255 H 10/16/17 21:43 POC Glucose 268 H Assessment/Plan Impressions 1. cystitis due to E. Coli 2. acute exacerbation suspected COPD - suspect she has both restrictive and obstructive lung disease 3. Steroid dependence? on Prednisone 15 mg at admission? and Plaquenil 4. microcytic anemia - has been given IV Venofer serum iron is low at 16 and the TIBC was normal at 335. No ferritin was obtained. 5. DM II - blood sugars are not controlled - likely related to the high dose steroids. No HGBA1 C has been checked 6. BL pleural effusions R>L etiology? Echocardiogram in June 2017 showed a 50-55% ejection fraction with regional wall motion abnormalities. Left atrium was mildly enlarged and there was mild mitral valve insufficiency and mild tricuspid valve insufficiency. The pulmonary pressure was estimated at 41. EKG shows NS ST and T wave changes with poor R wave in V1 and V2. She is on Lasix but the I&O's are not accurate 7. Current everyday smoker 8. infiltrate in the RUL vs Mass - will need a follow up CT in 3 months to see if there is any progression......ideally we will be able to get a copy of a CT done at another facility within the past 6-12 months. Has refused any W/U for lung mass in the past. 9. Hyponatremia 10. Hypertension 11. Acute respiratory failure at admission with pulse ox of 88% and a PO2 of 64 on a 4 LPM NC...not on oxygen at home 12. Pulmonary hypertension 13. CAD with stenting to the LCX and proximal RCA (Jun 2017) 14. vertebral compression Fractures - suspect osteoporosis Check a hemoccult stool Ask about colonoscopies, EGD's She should follow up with pulmonary going forward for PFT's and PSG and to monitor the possible mass in the RUL. Check a HGBA1C Will follow up with [facility] as previously arranged Ambulatory pulse ox on RA in the AM - She will need to demonstrate that she is able to ambulate prior to DC........instructed to participate with PT tomorrow - refused today. Suspect she is hypoxix with exertion on a routine basis Smoking cessation counselling given Needs a DEXA as an OP and W/O for secondary causes of bone loss Code Visit Inpatient E&M: 54543 Subs Hosp L3
[2017-10-17 19:58] LABS: Hemoglobin A1c 6.1 % (4.2-6.3)
[2017-10-17] MEDS: Atorvastatin Calcium 20 MG Tablet PO (22:21)
[2017-10-17] MEDS: Latanoprost 0.005% 1 Bottle 1 DRP EACH EYE (22:25)
[2017-10-17 22:56] LABS: Bedside Glucose 339 mg/dL (70-110)
[2017-10-18] VITALS (14 sets, daily range): BP systolic 115–139; BP diastolic 63–89; PULSE 78–108; RESP 12–36; TEMP 36.8–37.3; O2SAT 86–100
[2017-10-18 06:59] LABS: Anion Gap 7 (5-15); BUN 30 mg/dL (7-18); BUN/Creat Ratio 53.5 RATIO (10-20); Chloride 103 mmol/L (98-107); Cholesterol 115 mg/dL (200); Creatinine, Serum 0.56 mg/dL (0.55-1.02); EST Glomerular Filtration Rate 113 mL/min (>60); Est Glom Filt Rate - Afr Amer 137 mL/min (>60); Glucose 160 mg/dL (74-106); High Density Lipoprotein 61 mg/dL; Magnesium 2.4 mg/dL (1.6-2.6); Phosphorus 1.5 mg/dL (2.5-4.9); Potassium 3.8 mmol/L (3.5-5.1); Sodium Level 139 mmol/L (136-145); Triglycerides 140 mg/dL; Very Low Density Lipoprotein 28 mg/dL (5-40)
[2017-10-18 07:06] LABS: Bedside Glucose 171 mg/dL (70-110)
[2017-10-18] MEDS: Ipratropium/Albuterol Sulfate 3 ML AMPUL.NEB INHALATION ×3 (07:14→15:11)
[2017-10-18] MEDS: Hydroxychloroquine 200 MG Tablet PO ×2 (07:47→16:40)
--- NOTE | 2017-10-18 09:18 | PN_ITS ---
Subjective: The patient was seen and examined. She is lying on her side and somewhat tachypneic. States she is frustrated and just wants to go home. She has been refusing BiPAP. Patient maintaining appropriate saturations on 2-3 L of oxygen. She does not have a home oxygen requirement at this time. Patient does get intermittently tachycardic but has remained afebrile. Again, discussed the need for pulmonary function testing and biopsy of her right upper lobe lesion, she states she wants this done but currently wants to go home. Objective: Recent lab and culture data reviewed. BMP this morning showed a BUN of 30, creatinine 0.56. Glucose improved to 160. Phosphorus low at 1.5. Influenza screening and respiratory viral panel negative. Sputum culture is pending. - Physical Exam General: Alert, Oriented x3, - - agitated but cooperative. Tachypneic HEENT: Atraumatic, Normocephalic Oral: Moist Mucosa, No Gingival or Mucosal Lesions/ Ulcerations Neck: Supple Lungs: - - Diminished with posterior bibasilar rales. Expiratory wheeze and scattered rhonchi, no dullness to percussion. Symmetric expansion. Some accessory muscle use and tachypnea Cardiovascular: Regular rate, Regular Rhythm, Normal S1, Normal S2, No murmurs Abdomen: Bowel Sounds Present, Soft, Non Tender Extremities: No clubbing, No cyanosis, No edema Skin: No rashes, No breakdown Musculoskeletal: No Tenderness to Palpation of Joints or Extremities Lymphatic: No Cervical, Supraclavicular, or Inguinal Adenopathy Neurological: Neuro grossly intact Psych/Mental Status: Agitated, Flat Affect, Restless Vital Signs Temp Pulse Resp BP Pulse Ox 98.9 F 92 18 120/66 96 10/18/17 05:08 10/18/17 07:14 10/18/17 07:14 10/18/17 05:08 10/18/17 07:14 Oxygen Flow Rate (L/min) 2 Oxygen Delivery Method Nasal Cannula Weight: 125 lb 8.005 oz Body Mass Index (BMI) 24.5 Intake and Output for Last 24 Hours 10/16/17 10/17/17 10/18/17 23:59 23:59 23:59 Intake Total 2007 0 / 0 Balance 2007 0 / 0 Microbiology Past 72 Hours 10/16/17 10:25 Respiratory Panel (PCR) - Final Mucosa - Nasopharyngeal 10/14/17 18:35 Influenza Types A,B Direct FA ([facility]) - Final Mucosa - Nose Laboratory Tests Past 24 Hrs 10/17/17 10/18/17 05:50 05:40 Sodium 139 Potassium 3.8 Chloride 103 Carbon Dioxide 29.0 Anion Gap 7 BUN 30 H Creatinine 0.56 Estim Creat Clear Calc 37.60 Est GFR (MDRD) Af Amer 137 Est GFR (MDRD) Non-Af 113 BUN/Creatinine Ratio 53.5 H Glucose 160 H Hemoglobin A1c 6.1 Calcium 8.0 L Phosphorus 1.5 L Magnesium 2.4 Triglycerides 140 Cholesterol 115 LDL Cholesterol 26 VLDL Cholesterol 28 HDL Cholesterol 61 POC Glucose 10/18/17 10/17/17 10/17/17 06:49 22:23 17:01 POC Glucose 171 H 339 H 407 H 10/17/17 11:11 POC Glucose 368 H Assessment/Plan RECOMMENDATIONS: 1. Continue scheduled aerosol treatments and oral steroids with taper at discharge 2. Wean supplemental oxygen to maintain saturations at or above 90% 3. Continue empiric BiPAP therapy with naps and nightly 4. Smoking cessation is advisable. 5. Walking oximetry prior to consideration for discharge 6. Encourage incentive spirometer 7. Repeat CT chest in 3 months to evaluate RUL lesion 8. The patient needs to obtain baseline PFTs on an outpatient basis. She can follow-up in pulmonary clinic in 2 weeks if agreeable. IMPRESSIONS: 1. Acute hypoxemic respiratory failure Likely secondary to underlying COPD of unknown severity with exacerbation. In addition, the patient was also given IV fluids and a blood transfusion, which may to have contributed to her respiratory decompensation. Nevertheless, she responded well to BiPAP therapy. Agree with continued treatment for presumptive COPD exacerbation with steroids and aerosols. CTA chest obtained to rule out PE, was negative but indicative of RUL density and severe bilateral upper lobe predominant emphysematous changes. Previous imaging showed suspicious RUL lesion but patient declined biopsy--she is now stating she would consider biopsy. Patient needs to establish care in the pulmonary medicine clinic so that baseline PFTs can be obtained. She is not overly interested at this time, mainly because she just wants to go home. She likely has a chronic baseline oxygen requirement, despite no history of home oxygen. Would plan to continue empiric BiPAP therapy with naps and nightly- she has been refusing most of the time until she is too SOB to move. A walking oximetry study needs to be completed prior to consideration for discharge from the hospital. Encourage incentive spirometer, patient relatively sedentary. Recommend repeat CT chest in 3 months. She could possibly be discharged to the sleep lab as I suspect she will need to continue BIPAP at home. 2. E. coli cystitis Continue antibiotics as ordered. 3. Diabetes/rheumatoid arthritis/hypertension/tobacco dependence Complicates care, management, recovery and prognosis. Likely okay to continue home medications. Nicotine replacement therapy can be offered while the patient is admitted to the hospital. Adjust insulin coverage, patient more hyperglycemic likely related to her steroids. Continue PT/OT . Patient has been refusing, she would benefit from some activity, may help w/ SOB and probable atelectasis. Outpatient pulmonary follow-up is recommended. She is Palliative care at this time and is not interested in Hospice (had before but was discharged since improved). This note was generated with [employer] dictation software. It may contain incorrect words, spelling, and punctuation that were not noted in checking the note before signing.
[2017-10-18] MEDS: Carvedilol 3.125 MG TABLET PO (10:16)
[2017-10-18] MEDS: Timolol 0.25% 5ML OPTH.BTL 2 DRP EACH EYE (10:16)
[2017-10-18] MEDS: Cephalexin 500 MG Capsule PO (10:16)
[2017-10-18] MEDS: Enoxaparin 40 MG/0.4 ML Syringe SC (10:16)
[2017-10-18] MEDS: Clopidogrel Bisulfate 75 MG Tablet PO (10:16)
[2017-10-18] MEDS: Glucerna Shake 120 ML LIQUID PO (10:17)
[2017-10-18] MEDS: 0.9% NaCl Peripheral Flush Adult/Peds IV (10:19)
[2017-10-18] MEDS: Furosemide 20 MG/2 ML VIAL IV (12:27)
[2017-10-18 12:46] LABS: Bedside Glucose 418 mg/dL (70-110)
--- NOTE | 2017-10-18 16:22 | PCM.DC ---
You will use the following diet at home:: Calorie/Carbohydrate Controlled (specify 1200, 1400, etc), Cardiac Your food should be the consistency of: Regular Your liquids should be the consistency of: Regular/Thin Discharge Activity: - - Avoid exposure to any strong smells such as bleach, cleaning products, strong colognes or perfumes, paint fumes and smoke of any kind. Avoid sudden exposure to cold air because this can cause bronchospasm. You may want to cover your mouth when you go outside in the winter. Avoid exposure to anyone who is sick with a cough or sore throat. Call your doctor if you observe: Fever of 101 or Higher, Shortness of breath, Dizziness, Fainting spells, Swelling in the ankles, Chest pain, - - rash, more than 3 loose BM's a day, sores in the mouth, vaginal discharge or itching. Additional Instructions: 1. I have arranged for you to have a nebulizer at home and also oxygen. You should use the nebulizer every 4 hours during the day while awake. You can not smoke while you are on oxygen because it will ignite and cause a fire and lead to severe hemphill of the face and nose and extend down into the lungs when you take a breath. 2. I suspect you have severe lung disease and you also have trouble taking a deep breath because you are so hunched over. You have compression fractures of the spine and this leads to that rounded hunched back. This is likely due to osteoporosis and this is due to age and chronic steroid use. Steroids cause osteoporosis. You are not on calcium or vitamin D or anything to help build bone. You should have a test to evaluate the bone density....this test is called a DEXA and your primary care doctor can arrange this for you and trat you appropriately. 3. Whoever is buying you cigarettes is contributing to your and enabling you to kill yourself. This is not a loving thing to do and I recommend your family quits buying you cigarettes. Being short of breath every minute of the day and night is a terrible way to . I causes severe anxiety. Quit smoking so the COPD does not get worse. 4. You have a bladder infection due to a bacteria called E. Coli and I am discharging you on an antibiotic called Keflex. Do NOT take the amoxicillin any longer because the bacteria is resistant to Amoxicillin. 5. Your blood sugars are going to be high because of the prednisone. this will make you urinate more so make sure to drink enough water to stay hydrated. The blood sugars will come down as the prednisone dose is tapered over the next 10 days. Pending Tests on Discharge: sputum culture from 10/17 Allergies/Adverse Reactions: Allergies codeine Allergy (Verified 10/14/17 14:22) I SEE THINGS Medications to take at Discharge Hydroxychloroquine [Plaquenil] 200 mg PO BIDCM 06/10/17 Latanoprost 0.005% [Xalatan Opthalmic] 1 drp EACH EYE QHS 06/10/17 Metformin HCl 500 mg PO BID 06/10/17 timolol maleate 0.25 % eye drops 2 drp EACH EYE BID ml 07/14/17 Ondansetron [Zofran Odt] 4 mg PO Q8H PRN PRN #10 tab 10/13/17 Aspirin [Aspirin, Baby] 81 mg PO DAILY@0800 10/14/17 Atorvastatin Calcium [Lipitor] 20 mg PO QHS 10/14/17 Carvedilol [Coreg (Beta Mikal)] 3.125 mg PO BID 10/14/17 Clopidogrel Bisulfate [Plavix] 75 mg PO DAILY 10/14/17 Cephalexin [Keflex] 500 mg PO BID #10 cap 10/18/17 Ipratropium/Albuterol Sulfate [Duoneb] 3 ml INHALATION 4X/DAY #125 ampul.neb 10/18/17 Na Biphos/Potassium Phosphate [Neutra-Phos Packet] 1 packet PO TID #12 packet 10/18/17 Nebulizer [Aeroneb Go Nebulizer] 1 ea MC 4X/DAY #1 ea 10/18/17 Oxygen, Home [Home Oxygen] 2 - 3 lpm NASAL CONT #1 unit 10/18/17 Prednisone 10 mg PO DAILY #27 tab 10/18/17 Prednisone 15 mg PO DAILY #0 10/18/17 The following prescriptions were given: Oxygen, Home [Home Oxygen] 2 - 3 lpm NASAL CONT #1 unit Prednisone 10 mg PO DAILY #27 tab Cephalexin [Keflex] 500 mg PO BID #10 cap Na Biphos/Potassium Phosphate [Neutra-Phos Packet] 1 packet PO TID #12 packet Ipratropium/Albuterol Sulfate [Duoneb] 3 ml INHALATION 4X/DAY #125 ampul.neb Nebulizer [Aeroneb Go Nebulizer] 1 ea MC 4X/DAY #1 ea Primary Care Physician: Julius Capone [Primary Care Provider] - Please follow up with your Primary Care Physician in: 5-7 days Please Follow Up With: Narcisa Blackman - Pulmonary office When: 2 weeks to set up PFT's and PSG Proposed Discharge Date: 10/18/17
--- NOTE | 2017-10-18 16:46 | PCM.DC.SUM ---
Discharge Date and Diagnosis Date of Admission: 10/14/17 Date of Discharge: 10/18/17 - Primary Discharge Diagnosis Active and Suspected Problems (Last Updated 10/15/17 @ 14:39 by Jairo Garcia DO) COPD with acute exacerbation (Acute) - due to acute bronchitis Cystitis due to E. Coli Acute on chronic respiratory failure with hypoxemia (Acute) Pleural effusion (Acute) Hyponatremia (Acute) Microcytic anemia (Acute) Hypophosphatemia (Acute) Osteoporosis - suspected RUL mass - Secondary Discharge Diagnosis Chronic Problems (Last Updated 10/15/17 @ 14:39 by Jairo Garcia DO) Vertebral compression fracture (Chronic) - thoracic spine History of PTCA (Chronic) LCx, RCA in June 2017 Coronary artery disease (Chronic) Pulmonary artery hypertension (Chronic) Hypertension (Chronic) Tobacco dependence (Chronic) Diabetes mellitus type 2 in nonobese (Chronic) Mass of right lung (Chronic) - has never been worked up Steroid dependence (Chronic) Paroxysmal atrial fibrillation (Chronic) Nonrheumatic tricuspid (valve) insufficiency (Chronic) Nonrheumatic mitral (valve) insufficiency (Chronic) Essential (primary) hypertension (Chronic) Hospital Course and Treatment Imaging Results: Clinical Impression(s) from Imaging Studies Chest X-Ray 10/14/17 09:20 IMPRESSION: Stable examination. No acute abnormality is seen. Electronically Signed: Jose Morrison MD at 10:05 EST Tel [phone], Service support , Chest X-Ray 10/14/17 20:05 Chest X-Ray 10/15/17 10:28 IMPRESSION: Persistent patchy infiltrates of the right lung and interstitial lung disease bilaterally. No significant interval changes. Electronically Signed: Gregor Adames DO at 10:59 EST Tel [phone], Service support , Chest X-Ray 10/16/17 05:55 IMPRESSION: Resolving pneumonia. Electronically Signed: Kevin See MD at 6:27 EDT Tel , Service support , Chest CTA 10/16/17 07:56 IMPRESSION: No demonstrated pulmonary embolism or arterial dissection. Emphysematous changes of the lungs. Focal right upper lobe consolidation. Bilateral pleural effusion with basilar consolidation/atelectasis, right more than left. Compression deformity of T6, T11, and L1. Bilateral renal cysts. Electronically Signed: Gregormartir Adames DO at 9:20 EDT Tel [phone], Service support , Dr. Cosmo Stephens-pulmonary medicine Operations: None Procedures: None Summary of Care Provided: Patient is a 72-year-old female with a past medical history of paroxysmal atrial fibrillation (not on anticoagulation), diabetes mellitus type 2, hyperlipidemia, nonrheumatic tricuspid insufficiency, coronary artery disease with history of PTCA to the LCx and RCA, hypertension, steroid dependence, rheumatoid arthritis and nicotine dependence who presented to the emergency department at [facility] on 10/14/2017 complaining of not feeling well. She was on Prednisone and Plaquenil at admission. She has been on Prednisone for years for the treatment of RA and she sees a maintenance advisor in [place]. She had been seen in the emergency room on 10/13/17 and signed out AGAINST MEDICAL ADVICE when workup revealed a urinary tract infection. Lactic acid at that time was 3.8. CT scan of the abdomen and pelvis done on 10/13/2017 showed bilateral renal cysts, a fibroid uterus and follicles of the left ovary. She additionally complained of wheezing and chest congestion. Vital signs at presentation to the emergency room on 10/14 were temperature 98.2, pulse rate 104, blood pressure 150/79, respiratory rate 42 and she was 98% saturated on room air. White blood cell count was elevated at 13.3 with a left shift. Hemoglobin was 8.5 and the MCV was 77.7 with an elevated RDW at 16.8. H/H and MCV has been gradually decreasing over the past several months. Platelet count was 239,000. Sodium was low at 131 and the BUN was 11 with a creatinine of 0.49. A random glucose was elevated at 156. Lactic Acid was normal at 1.2. Urine culture from 10/13/2017 grew E. coli resistant to ampicillin. A CTA of the chest was done and showed no demonstrated pulmonary embolism or arterial dissection but did show a focal right upper lobe consolidation/mass, BL pleural effusions and atelectasis. There were also compression deformities of T6, T11 and L1. She was admitted to the hospital with a diagnosis of acute cystitis and acute exacerbation COPD suspected to be due to acute bronchitis. IV Rocephin was started. She was started on aerosolized bronchodilators, IV steroids and influenza swab and respiratory panel were ordered and both were negative. Dr. Cosmo Stephens was consulted. She gradually improved and was transitioned to Keflex after the urine culture results were available. On 10/17 she wanted to be discharged but had not participated with PT and had not ambulated so DC was held. On 10/18 she did participate in PT and ambulated 15 ft with hand held assist. She became SOB and desaturated to 86% at the conclusion of the walk. Her family is available 28/02 to assist her at home. Home oxygen was arranged for her and she was discharged on 10/18. A nebulizer was also arranged for DC. She was given RX's for a tapering dose of steroids, Keflex, Neutra-phos and Duoneb. She was instructed to follow up in the pulmonary office in 2 weeks to arrange PFT's and PSG. She will need to have a follow up CT of the chest in 3 months to re-evaluate the possible mass in the RUL. she will follow up with her PCP in the next 1-2 weeks. This note was generated with [employer] dictation software. It may contain incorrect words, spelling, and punctuation that were not noted in checking the note before signing. Discharge Activity: - - Avoid exposure to any strong smells such as bleach, cleaning products, strong colognes or perfumes, paint fumes and smoke of any kind. Avoid sudden exposure to cold air because this can cause bronchospasm. You may want to cover your mouth when you go outside in the winter. Avoid exposure to anyone who is sick with a cough or sore throat. Call your doctor if you observe: Fever of 101 or Higher, Shortness of breath, Dizziness, Fainting spells, Swelling in the ankles, Chest pain, - - rash, more than 3 loose BM's a day, sores in the mouth, vaginal discharge or itching. Home Medications: Medications to take at Discharge Hydroxychloroquine [Plaquenil] 200 mg PO BIDCM 06/10/17 Latanoprost 0.005% [Xalatan Opthalmic] 1 drp EACH EYE QHS 06/10/17 Metformin HCl 500 mg PO BID 06/10/17 timolol maleate 0.25 % eye drops 2 drp EACH EYE BID ml 07/14/17 Ondansetron [Zofran Odt] 4 mg PO Q8H PRN PRN #10 tab 10/13/17 Aspirin [Aspirin, Baby] 81 mg PO DAILY@0800 10/14/17 Atorvastatin Calcium [Lipitor] 20 mg PO QHS 10/14/17 Carvedilol [Coreg (Beta Mikal)] 3.125 mg PO BID 10/14/17 Clopidogrel Bisulfate [Plavix] 75 mg PO DAILY 10/14/17 Cephalexin [Keflex] 500 mg PO BID #10 cap 10/18/17 Ipratropium/Albuterol Sulfate [Duoneb] 3 ml INHALATION 4X/DAY #125 ampul.neb 10/18/17 Na Biphos/Potassium Phosphate [Neutra-Phos Packet] 1 packet PO TID #12 packet 10/18/17 Nebulizer [Aeroneb Go Nebulizer] 1 ea MC 4X/DAY #1 ea 10/18/17 Oxygen, Home [Home Oxygen] 2 - 3 lpm NASAL CONT #1 unit 10/18/17 Prednisone 10 mg PO DAILY #27 tab 10/18/17 Prednisone 15 mg PO DAILY #0 10/18/17 Following Prescrptions Were Given to Patient: Oxygen, Home [Home Oxygen] 2 - 3 lpm NASAL CONT #1 unit Prednisone 10 mg PO DAILY #27 tab Cephalexin [Keflex] 500 mg PO BID #10 cap Na Biphos/Potassium Phosphate [Neutra-Phos Packet] 1 packet PO TID #12 packet Ipratropium/Albuterol Sulfate [Duoneb] 3 ml INHALATION 4X/DAY #125 ampul.neb Nebulizer [Aeroneb Go Nebulizer] 1 ea MC 4X/DAY #1 ea Primary Care Physician: Julius Capone [Primary Care Provider] - Please follow up with your Primary Care Physician in: 5-7 days Please Follow Up With: Narcisa Blackman - Pulmonary office When: 2 weeks to set up PFT's and PSG Disposition: Home Minutes spent on discharge:: 35 Patient Condition:: Stable Medical Necessity - Tobacco Use Smoking Status: Current every day smoker Tobacco Use: Cigarettes Meaningful Use Info Meaningful Use Diagnoses (Choose all that apply): None applicable Code Visit Inpatient E&M: 44689 Disch Hosp
[2017-10-18 16:50] LABS: Bedside Glucose 268 mg/dL (70-110)
--- NOTE | 2017-10-18 16:55 | DS.PCM_ITS ---
Discharge Date and Diagnosis Date of Admission: 10/14/17 Date of Discharge: 10/18/17 - Primary Discharge Diagnosis Active and Suspected Problems (Last Updated 10/15/17 @ 14:39 by Jairo Garcia DO) COPD with acute exacerbation (Acute) - due to acute bronchitis Cystitis due to E. Coli Acute on chronic respiratory failure with hypoxemia (Acute) Pleural effusion (Acute) Hyponatremia (Acute) Microcytic anemia (Acute) Hypophosphatemia (Acute) Osteoporosis - suspected RUL mass - Secondary Discharge Diagnosis Chronic Problems (Last Updated 10/15/17 @ 14:39 by Jairo Garcia DO) Vertebral compression fracture (Chronic) - thoracic spine History of PTCA (Chronic) LCx, RCA in June 2017 Coronary artery disease (Chronic) Pulmonary artery hypertension (Chronic) Hypertension (Chronic) Tobacco dependence (Chronic) Diabetes mellitus type 2 in nonobese (Chronic) Mass of right lung (Chronic) - has never been worked up Steroid dependence (Chronic) Paroxysmal atrial fibrillation (Chronic) Nonrheumatic tricuspid (valve) insufficiency (Chronic) Nonrheumatic mitral (valve) insufficiency (Chronic) Essential (primary) hypertension (Chronic) Hospital Course and Treatment Imaging Results: Clinical Impression(s) from Imaging Studies Chest X-Ray 10/14/17 09:20 IMPRESSION: Stable examination. No acute abnormality is seen. Electronically Signed: Jose Morrison MD at 10:05 EST Tel [phone], Service support , Chest X-Ray 10/14/17 20:05 Chest X-Ray 10/15/17 10:28 IMPRESSION: Persistent patchy infiltrates of the right lung and interstitial lung disease bilaterally. No significant interval changes. Electronically Signed: Gregor Adames DO at 10:59 EST Tel [phone], Service support , Chest X-Ray 10/16/17 05:55 IMPRESSION: Resolving pneumonia. Electronically Signed: Kevin See MD at 6:27 EDT Tel , Service support , Chest CTA 10/16/17 07:56 IMPRESSION: No demonstrated pulmonary embolism or arterial dissection. Emphysematous changes of the lungs. Focal right upper lobe consolidation. Bilateral pleural effusion with basilar consolidation/atelectasis, right more than left. Compression deformity of T6, T11, and L1. Bilateral renal cysts. Electronically Signed: Gregormartir Adames DO at 9:20 EDT Tel [phone], Service support , Dr. Cosmo Stephens-pulmonary medicine Operations: None Procedures: None Summary of Care Provided: Patient is a 72-year-old female with a past medical history of paroxysmal atrial fibrillation (not on anticoagulation), diabetes mellitus type 2, hyperlipidemia, nonrheumatic tricuspid insufficiency, coronary artery disease with history of PTCA to the LCx and RCA, hypertension, steroid dependence, rheumatoid arthritis and nicotine dependence who presented to the emergency department at [facility] on 10/14/2017 complaining of not feeling well. She was on Prednisone and Plaquenil at admission. She has been on Prednisone for years for the treatment of RA and she sees a clinic manager in [place]. She had been seen in the emergency room on 10/13/17 and signed out AGAINST MEDICAL ADVICE when workup revealed a urinary tract infection. Lactic acid at that time was 3.8. CT scan of the abdomen and pelvis done on 10/13 showed bilateral renal cysts, a fibroid uterus and follicles of the left ovary. She additionally complained of wheezing and chest congestion. Vital signs at presentation to the emergency room on 10/14 were temperature 98.2, pulse rate 104, blood pressure 150/79, respiratory rate 42 and she was 98% saturated on room air. White blood cell count was elevated at 13.3 with a left shift. Hemoglobin was 8.5 and the MCV was 77.7 with an elevated RDW at 16.8. H/H and MCV has been gradually decreasing over the past several months. Platelet count was 239,000. Sodium was low at 131 and the BUN was 11 with a creatinine of 0.49. A random glucose was elevated at 156. Lactic Acid was normal at 1.2. Urine culture from 10/13/2017 grew E. coli resistant to ampicillin. A CTA of the chest was done and showed no demonstrated pulmonary embolism or arterial dissection but did show a focal right upper lobe consolidation/mass, BL pleural effusions and atelectasis. There were also compression deformities of T6, T11 and L1. She was admitted to the hospital with a diagnosis of acute cystitis and acute exacerbation COPD suspected to be due to acute bronchitis. IV Rocephin was started. She was started on aerosolized bronchodilators, IV steroids and influenza swab and respiratory panel were ordered and both were negative. Dr. Cosmo Stephens was consulted. She gradually improved and was transitioned to Keflex after the urine culture results were available. On 10/17 she wanted to be discharged but had not participated with PT and had not ambulated so DC was held. On 10/18 she did participate in PT and ambulated 15 ft with hand held assist. She became SOB and desaturated to 86% at the conclusion of the walk. Her family is available 28/02 to assist her at home. Home oxygen was arranged for her and she was discharged on 10/18. A nebulizer was also arranged for DC. She was given RX's for a tapering dose of steroids, Keflex, Neutra-phos and Duoneb. She was instructed to follow up in the pulmonary office in 2 weeks to arrange PFT's and PSG. She will need to have a follow up CT of the chest in 3 months to re-evaluate the possible mass in the RUL. she will follow up with her PCP in the next 1-2 weeks. This note was generated with [employer] dictation software. It may contain incorrect words, spelling, and punctuation that were not noted in checking the note before signing. Discharge Activity: - - Avoid exposure to any strong smells such as bleach, cleaning products, strong colognes or perfumes, paint fumes and smoke of any kind. Avoid sudden exposure to cold air because this can cause bronchospasm. You may want to cover your mouth when you go outside in the winter. Avoid exposure to anyone who is sick with a cough or sore throat. Call your doctor if you observe: Fever of 101 or Higher, Shortness of breath, Dizziness, Fainting spells, Swelling in the ankles, Chest pain, - - rash, more than 3 loose BM's a day, sores in the mouth, vaginal discharge or itching. Home Medications: Medications to take at Discharge Hydroxychloroquine [Plaquenil] 200 mg PO BIDCM 06/10/17 Latanoprost 0.005% [Xalatan Opthalmic] 1 drp EACH EYE QHS 06/10/17 Metformin HCl 500 mg PO BID 06/10/17 timolol maleate 0.25 % eye drops 2 drp EACH EYE BID ml 07/14/17 Ondansetron [Zofran Odt] 4 mg PO Q8H PRN PRN #10 tab 10/13/17 Aspirin [Aspirin, Baby] 81 mg PO DAILY@0800 10/14/17 Atorvastatin Calcium [Lipitor] 20 mg PO QHS 10/14/17 Carvedilol [Coreg (Beta Mikal)] 3.125 mg PO BID 10/14/17 Clopidogrel Bisulfate [Plavix] 75 mg PO DAILY 10/14/17 Cephalexin [Keflex] 500 mg PO BID #10 cap 10/18/17 Ipratropium/Albuterol Sulfate [Duoneb] 3 ml INHALATION 4X/DAY #125 ampul.neb Na Biphos/Potassium Phosphate [Neutra-Phos Packet] 1 packet PO TID #12 packet Nebulizer [Aeroneb Go Nebulizer] 1 ea MC 4X/DAY #1 ea 10/18/17 Oxygen, Home [Home Oxygen] 2 - 3 lpm NASAL CONT #1 unit 10/18/17 Prednisone 10 mg PO DAILY #27 tab 10/18/17 Prednisone 15 mg PO DAILY #0 10/18/17 Following Prescrptions Were Given to Patient: Oxygen, Home [Home Oxygen] 2 - 3 lpm NASAL CONT #1 unit Prednisone 10 mg PO DAILY #27 tab Cephalexin [Keflex] 500 mg PO BID #10 cap Na Biphos/Potassium Phosphate [Neutra-Phos Packet] 1 packet PO TID #12 packet Ipratropium/Albuterol Sulfate [Duoneb] 3 ml INHALATION 4X/DAY #125 ampul.neb Nebulizer [Aeroneb Go Nebulizer] 1 ea MC 4X/DAY #1 ea Primary Care Physician: Julius Capone [Primary Care Provider] - Please follow up with your Primary Care Physician in: 5-7 days Please Follow Up With: Narcisa Blackman - Pulmonary office When: 2 weeks to set up PFT's and PSG Disposition: Home Minutes spent on discharge:: 35 Patient Condition:: Stable Medical Necessity - Tobacco Use Smoking Status: Current every day smoker Tobacco Use: Cigarettes Meaningful Use Info Meaningful Use Diagnoses (Choose all that apply): None applicable Code Visit Inpatient E&M: 21329 Disch Hosp
--- NOTE | 2017-10-19 13:42 | CASEMGMT ---
CARLOS called [facility] and spoke with Liss on the coverage line. CARLOS let her know patient was discharged yesterday. Allegra MAK MSW
== END 2017-10-18 17:59 | disposition home or self-care (01) | DRG 871 ==
LOC: ED 12:28 → MS2 12:52 → PCU 10-15 20:05
PROVIDERS: Internal Medicine; Admitting Provider Internal Medicine; Emergency Provider Emergency Medicine; Family Provider Family Medicine; PCP Family Medicine; Visit Provider Internal Medicine
DX: A41.9 Sepsis, unspecified organism (principal); J96.21 Acute and chronic respiratory failure with hypoxia; J90 Pleural effusion, not elsewhere classified; I27.20 Pulmonary hypertension, unspecified; E87.1 Hypo-osmolality and hyponatremia; E83.39 Other disorders of phosphorus metabolism; N30.00 Acute cystitis without hematuria; J44.1 Chronic obstructive pulmonary disease with (acute) exacerbation; M48.54XA Collapsed vertebra, not elsewhere classified, thoracic region, initial encounter for fracture; I48.0 Paroxysmal atrial fibrillation; I36.1 Nonrheumatic tricuspid (valve) insufficiency; E11.9 Type 2 diabetes mellitus without complications; B96.20 Unspecified Escherichia coli [E. coli] as the cause of diseases classified elsewhere; M06.9 Rheumatoid arthritis, unspecified; F17.210 Nicotine dependence, cigarettes, uncomplicated; D50.9 Iron deficiency anemia, unspecified; I25.10 Atherosclerotic heart disease of native coronary artery without angina pectoris; Z79.84 Long term (current) use of oral hypoglycemic drugs; Z79.52 Long term (current) use of systemic steroids; Z95.5 Presence of coronary angioplasty implant and graft; M81.0 Age-related osteoporosis without current pathological fracture; M40.209 Unspecified kyphosis, site unspecified; R91.8 Other nonspecific abnormal finding of lung field; I10 Essential (primary) hypertension; I34.0 Nonrheumatic mitral (valve) insufficiency; K21.9 Gastro-esophageal reflux disease without esophagitis; Z79.02 Long term (current) use of antithrombotics/antiplatelets; Z79.82 Long term (current) use of aspirin; Z79.899 Other long term (current) drug therapy; I25.2 Old myocardial infarction
CPT/HCPCS: 36415; 36600; 71045; 71046; 71275; 74177; 80048; 80053; 80061; 81001; 82803; 82962; 83036; 83540; 83550; 83605; 83690; 83735; 84100; 84484; 85025; 85610; 85730; 86850; 86900; 86920; 86922; 87040; 87070; 87086; 87088; 87186; 87205; 87633; 87804; 93005; 94002; 94003; 94640; 96361; 96365; 96375; 97110; 97116; 97162; 97166; 97530; 97535; 97802; 99283; 99284; 99406; J1756; J7030; J7040; J7050; P9016; Q9967; A4216; J1940; J2405